=== PATIENT | male | born 1955 | race Caucasian/White ===

== ENCOUNTER 2023-04-19 22:16 | Inpatient (IN) ==
[2023-04-19 23:03] LABS: Basophils # (auto) 0.03 K/uL (0.00-0.20); Basophils % (auto) 0.3 %; Eosinophils # (auto) 0.16 K/uL (0.00-0.50); Eosinophils % (auto) 1.5 %; Hematocrit (blood only) 43.2 % (42.0-52.0); Hemoglobin 14.4 g/dl (14.0-18.0); Immature Granulocytes # (auto) 0.04 K/uL (0.01-0.20); Immature Granulocytes % (auto) 0.4 %; Lymphocytes % (auto) 10.5 %; Mean Corpuscular Hemoglobin 30.4 pg (25.0-34.0); Mean Corpuscular Hgb Conc 33.3 g/dL (32.0-36.0); Mean Corpuscular Volume 91.1 fL (80.0-100.0); Mean Platelet Volume 10.6 fL (9.4-12.4); Monocytes # (auto) 0.98 K/uL (0.11-0.59); Monocytes % (auto) 9.4 %; Neutrophils # (auto) 8.15 K/uL (1.40-6.50); Neutrophils % (auto) 77.9 %; Platelet Count 159 K/uL (130-400); RDW Coefficient of Variation 13.3 % (11.5-14.5); RDW Standard Deviation 44.6 fL (36.4-46.3); Red Blood Count 4.74 M/uL (4.70-6.10); White Blood Count 10.46 K/ul (4.8-10.8)
[2023-04-19 23:11] LABS: Albumin Level 4.4 gm/dl (3.4-5.0); Bilirubin,Total 1.4 mg/dl (0.2-1.0); Calcium 9.2 mg/dl (8.6-10.3); Magnesium 1.9 mg/dl (1.7-2.4); Potassium 3.8 mmol/L (3.5-5.1)
[2023-04-19 23:17] LABS: Albumin Globulin Ratio 1.5 (0.9-2); Creatinine Clr Calc Pharmacy 67.5 ml/min; Est GFR (African American) 88.6 ml/min; Est GFR (Non-African American) 76.5 ml/min; Total Protein 7.4 gm/dl (6.0-8.3)
[2023-04-19 23:20] LABS: Troponin I High Sensitivity 4.8 pg/ml (0-20)
--- NOTE | 2023-04-19 23:36 | CT Scan Report ---
Exam(s): CT HEAD Without Contrast EXAM: CT Head Without Intravenous Contrast CLINICAL HISTORY: Reason for exam: syncope. TECHNIQUE: Axial computed tomography images of the head/brain without intravenous contrast. CTDI is 35.92 mGy and DLP is 624.41 mGy-cm. Automated exposure control was utilized for the study. A dose lowering technique was utilized adhering to the principles of ALARA. COMPARISON: None. FINDINGS: Brain: Global parenchymal volume loss with chronic microvascular ischemic changes. No hemorrhage. Ventricles: Unremarkable. No ventriculomegaly. Bones/joints: Unremarkable. No acute fracture. Soft tissues: Left temporal scalp hematoma. Sinuses: Unremarkable as visualized. Mastoid air cells: Unremarkable as visualized. No mastoid effusion. Orbits: Bilateral lens replacement. IMPRESSION: 1. No intracranial hemorrhage or other acute intracranial abnormality. 2. Left temporal scalp hematoma. 3. Global parenchymal volume loss with chronic microvascular ischemic changes. Electronically signed by: Radames Daniel MD 04/19/23 23:35 PM
--- NOTE | 2023-04-19 23:40 | CT Scan Report ---
Exam(s): CT C SPINE EXAM: CT Cervical Spine Without Intravenous Contrast CLINICAL HISTORY: Reason for exam: Syncope, Fall. TECHNIQUE: Axial computed tomography images of the cervical spine without intravenous contrast. CTDI is 25.7 mGy and DLP is 498.16 mGy-cm. Automated exposure control was utilized for the study. A dose lowering technique was utilized adhering to the principles of ALARA. COMPARISON: None. FINDINGS: Vertebrae: Grade 1 retrolisthesis of C4 on C5. Degenerative change throughout the cervical spine yields varying degrees of foraminal narrowing. No high-grade spinal canal stenosis. No acute fracture. Discs/spinal canal/neural foramina: See above. Soft tissues: Unremarkable. IMPRESSION: No acute fracture or traumatic malalignment of the cervical spine. Electronically signed by: Radames Daniel MD 04/19/23 23:39 PM
--- NOTE | 2023-04-20 01:06 | Emergency Department Note ---
Impression & Plan Pulmonary emboli, Syncope, Dehydration, CHI (closed head injury), Laceration of scalp ED Provider Note ED Provider Note NAME: ED MEJIA AGE:67 SEX: Male : 1955 ARRIVES VIA: EMS INFORMANT: Patient ED PROVIDER(s): Kylie Bonilla DO CHIEF COMPLAINT: Syncope, head injury HPI: This is a 67-year-old male presents emergency department with at bedside due to concern for a syncopal event with subsequent fall and head injury this evening. Patient states he has had a cold the last 2 days, and was taking Mucinex throughout the day. He states he mostly rested and was laying down, and did not have much to eat or drink today. He states he had been seated on the couch watching some television and stood up to go get a drink in the kitchen. He states when he stood up he began feeling slightly dizzy, and as he was walking to the kitchen this seemed to worsen. He states the next thing he knew there were ambulance personnel in his home in front of him. states she was upstairs and she heard a loud noise and came down and found him face down lying on the kitchen floor with blood coming from his head. She states when she turned him over he was breathing, he did not appeal pale, flushed, or sweaty. No seizure-like activity noted. She states he very quickly began to open his eyes and talk to her again although still seemed confused and was insistent on getting up and sitting in the chair. Patient states he does not remember getting up and sitting in the chair. Patient states he is continue taking his usual blood pressure medications despite being ill. PAST MEDICAL HISTORY:See Below PAST SURGICAL HISTORY:See Below FAMILY HISTORY:See Below SOCIAL HISTORY:See Below HOME MEDICATIONS:See Below ALLERGIES:See Below VITALS:See Below PHYSICAL EXAMINATION: GENERAL: alert, well appearing, well nourished, no distress, non-toxic HEAD: nc, 1.5 cm superficial laceration noted to left congregation area, no active bleeding, dried blood noted in the hair, no other evidence of facial trauma, no vizcaino signs, no raccoon eyes EYE EXAM: normal conjunctiva, PERRL and EOM's grossly intact OROPHARYNX: no exudate, no erythema, lips, buccal mucosa, and tongue normal and mucous membranes are moist NECK: supple, no nuchal rigidity, no adenopathy, non-tender LUNGS: Clear to auscultation. Normal chest wall mechanics, no w/r/r HEART: no murmurs, S1 normal and S2 normal CHEST WALL: ABDOMEN: abdomen soft, non-tender, normo-active bowel sounds, no masses, no rebound or guarding. BACK: Back is symmetrical on inspection and there is no deformity, no midline tenderness, no CVA tenderness. SKIN: no rashes, petechiae, orbruising UPPER EXTREMITIES: upper extremities are grossly normal. FROM, nml pulses b/l. LOWER EXTREMITIES: No pitting edema. FROM, nml pulses b/l. NEURO EXAM: Normal sensorium, cranial nerves II-XII grossly intact, normal speech, no facial droop,nogross weakness of arms, no gross weakness of legs. Gross sensation intact. No ataxia. Vital Signs: reviewed and remarkable Differential Diagnosis: vasovagal event, infection, hypoglycemia, electrolyte abnormalities, toxidrome, substance abuse, dysrhythmia, ACS, as well as others were entertained. MEDICAL DECISION MAKING: This is a 67-year-old male presents emergency department following a syncopal event at home. Patient afebrile vital signs stable on arrival. He had no complaints at bedside. Small superficial laceration noted to right scalp without active bleeding, no other evidence of trauma. Patient did have prodromal symptoms, initially thought to be related to dehydration, continued use of his antihypertensives, recent illness, and use of OTC cough/cold medications. Labs drawn and sent, IV established, EKG performed at bedside and interpreted by me and patient monitored on telemetry. He was started on IV fluids and sent for CT head as well as CT C-spine. Troponin negative however D- dimer markedly elevated. Patient sent for CT of the chest additionally which revealed multiple bilateral PEs as well as evidence of right heart strain. Patient's small superficial scalp laceration closed with skin glue as it was along the margin of the hairline. Case discussed with hospitalist for additional evaluation and management. Heparin bolus and drip ordered. Patient denies any prior history of intracranial hemorrhage or GI bleed. We discussed the need for additional inpatient evaluation and management, patient verbalized understanding of results and plan. Consultation(s): 0340: Discussed with Dr. Garcia, [facility] hospitalist team, for additional evaluation and management ER Treatment Provided: See below Diagnostics Interpreted By Me: -ECG: Sinus bradycardia 58, normal axis, normal intervals, no acute ST/T wave changes -Cardiac Monitoring: An order was placed for continuous cardiac monitoring. The monitor shows a rate of 62 with normal sinus rhythm. -Laboratory studies: As stated above and show below. -Imaging studies: CT head: No obvious ICH per my interpretation Triage Nursing Note Reviewed Prior/Outside Records Reviewed . Critical care: Critical care of 39 min performed to assess and manage high likelihood of life- threatening bilateral pulmonary emboli with RV strain, involving labs and imaging performed with assessment to evaluate syncope diagnosis with frequent reassessment. This time includes bedside time, treatment discussions with patient/family/consultants, documentation time and excludes procedure time. Past Med/Surg History Medical History (Updated 04/20/23 @ 08:07 by Kylie Bonilla DO) Hyperlipidemia Hypertension Surgical History (Updated 04/20/23 @ 06:36 by MARTINEZ Tamayo) H/O aortic valve replacement Social History Smoking Status: Former smoker Tobacco Type: Cigarettes Smoking End Date: 1983; Hx Alcohol Use: Yes Alcohol type: wine and hard liquor Hx Substance Use: No Preferred Language: Bulgarian Communication Ability: Effective Rn Tele Required: No Beliefs That Will Affect Care: None Current Living Situation: Spouse Other Information That Helps Us Care for You: No Feels Safe at Home: Yes Safety Concerns: Feels Safe At This Time Assistive Devices: Glasses Assistive Devices Comment: reading glasses Allergies Allergies Allergy/AdvReac Type Severity Reaction Status Date / Time No Known Allergies Allergy Unverified 12/08/12 08:52 Home Meds Home Medications Medication Instructions Recorded Confirmed aspirin 81 mg tablet,delayed 81 mg PO DAILY 04/20/23 04/20/23 release atorvastatin 10 mg tablet 5 mg PO DAILY 04/20/23 04/20/23 carvedilol 12.5 mg tablet 12.5 mg PO BID 04/20/23 04/20/23 lisinopril 20 1 tab PO DAILY 04/20/23 04/20/23 mg-hydrochlorothiazide 12.5 mg tablet Results & Data (ED) Vital Signs Vital Signs - 24 hr 04/19/23 22:29 04/19/23 22:29 04/19/23 22:30 Temperature Temperature Source Pulse Rate 57 L 57 L 57 L Pulse Rate from SpO2 Sensor 57 L 57 L Pulse Rhythm Pulse Strength Respiratory Rate 15 15 Respiratory Effort / Characteristics Respiratory Depth Respiratory Pattern Blood Pressure Blood Pressure Mean Blood Pressure Position Pulse Oximetry 96 96 Oxygen Delivery Method Room Air Room Air Oxygen Flow Rate Sepsis Recent Fever Within 48 Hours Sepsis New/Unexplained Change in Mental Status Sepsis Action Taken by Nursing 04/19/23 22:31 04/19/23 22:31 04/19/23 22:33 Temperature 36.6 C Temperature Source Oral Pulse Rate 57 L 55 L Pulse Rate from SpO2 Sensor 58 L Pulse Rhythm Regular Pulse Strength Normal Respiratory Rate 18 18 Respiratory Effort / Characteristics Non-Labored Spontaneous Respiratory Depth Normal Respiratory Pattern Regular Blood Pressure 120/81 129/80 Blood Pressure Mean 89 96 Blood Pressure Position Semi-fowlers Pulse Oximetry 98 96 Oxygen Delivery Method Room Air Room Air Oxygen Flow Rate Sepsis Recent Fever Within 48 Hours No Sepsis New/Unexplained Change in Mental Status No Sepsis Action Taken by Nursing No Action Required 04/19/23 22:40 04/19/23 22:48 04/19/23 22:50 Temperature Temperature Source Pulse Rate 57 L 60 Pulse Rate from SpO2 Sensor 56 L 57 L Pulse Rhythm Pulse Strength Respiratory Rate 16 15 Respiratory Effort / Characteristics Respiratory Depth Respiratory Pattern Blood Pressure Blood Pressure Mean Blood Pressure Position Pulse Oximetry 96 95 95 Oxygen Delivery Method Room Air Room Air Room Air Oxygen Flow Rate 0 Sepsis Recent Fever Within 48 Hours Sepsis New/Unexplained Change in Mental Status Sepsis Action Taken by Nursing 04/19/23 22:55 04/19/23 23:07 04/19/23 23:07 Temperature Temperature Source Pulse Rate 59 L 59 L Pulse Rate from SpO2 Sensor Pulse Rhythm Regular Pulse Strength Respiratory Rate 16 13 Respiratory Effort / Characteristics Respiratory Depth Respiratory Pattern Blood Pressure 111/62 Blood Pressure Mean 72 Blood Pressure Position Pulse Oximetry 95 Oxygen Delivery Method Room Air Oxygen Flow Rate Sepsis Recent Fever Within 48 Hours Sepsis New/Unexplained Change in Mental Status Sepsis Action Taken by Nursing 04/19/23 23:10 04/19/23 23:20 04/19/23 23:30 Temperature Temperature Source Pulse Rate 65 57 L 57 L Pulse Rate from SpO2 Sensor 59 L 58 L 57 L Pulse Rhythm Pulse Strength Respiratory Rate 15 19 20 Respiratory Effort / Characteristics Respiratory Depth Respiratory Pattern Blood Pressure Blood Pressure Mean Blood Pressure Position Pulse Oximetry 96 96 96 Oxygen Delivery Method Room Air Room Air Room Air Oxygen Flow Rate Sepsis Recent Fever Within 48 Hours Sepsis New/Unexplained Change in Mental Status Sepsis Action Taken by Nursing 04/19/23 23:30 04/19/23 23:40 04/19/23 23:50 Temperature Temperature Source Pulse Rate 58 L 61 Pulse Rate from SpO2 Sensor 57 L 58 L Pulse Rhythm Pulse Strength Respiratory Rate 17 16 Respiratory Effort / Characteristics Respiratory Depth Respiratory Pattern Blood Pressure 109/63 Blood Pressure Mean 90 Blood Pressure Position Pulse Oximetry 97 97 Oxygen Delivery Method Room Air Room Air Oxygen Flow Rate Sepsis Recent Fever Within 48 Hours Sepsis New/Unexplained Change in Mental Status Sepsis Action Taken by Nursing 04/20/23 02:21 04/20/23 03:00 04/20/23 03:30 Temperature Temperature Source Pulse Rate 62 57 L 57 L Pulse Rate from SpO2 Sensor Pulse Rhythm Pulse Strength Respiratory Rate 18 12 Respiratory Effort / Characteristics Respiratory Depth Respiratory Pattern Blood Pressure 123/76 98/59 L Blood Pressure Mean 91 72 Blood Pressure Position Pulse Oximetry 95 96 Oxygen Delivery Method Oxygen Flow Rate Sepsis Recent Fever Within 48 Hours Sepsis New/Unexplained Change in Mental Status Sepsis Action Taken by Nursing 04/20/23 04:31 04/20/23 05:01 Temperature Temperature Source Pulse Rate 63 54 L Pulse Rate from SpO2 Sensor Pulse Rhythm Pulse Strength Respiratory Rate 16 16 Respiratory Effort / Characteristics Respiratory Depth Respiratory Pattern Blood Pressure 130/65 116/70 Blood Pressure Mean 86 85 Blood Pressure Position Pulse Oximetry 90 95 Oxygen Delivery Method Oxygen Flow Rate Sepsis Recent Fever Within 48 Hours Sepsis New/Unexplained Change in Mental Status Sepsis Action Taken by Nursing Laboratory Data 04/20/23 07:09 04/20/23 07:09 Lab Results 04/19/23 04/19/23 04/20/23 Range/Units 22:24 23:54 01:10 WBC 10.46 (4.8-10.8) K/ul RBC 4.74 (4.70-6.10) M/uL Hgb 14.4 (14.0-18.0) g/dl Hct 43.2 (42.0-52.0) % MCV 91.1 (80.0-100.0) fL MCH 30.4 (25.0-34.0) pg MCHC 33.3 (32.0-36.0) g/dL RDW Std Deviation 44.6 (36.4-46.3) fL RDW Coeff of Greg 13.3 (11.5-14.5) % Plt Count 159 (130-400) K/uL MPV 10.6 (9.4-12.4) fL Immature Gran % (Auto) 0.4 % Neut % (Auto) 77.9 % Lymph % (Auto) 10.5 % Callahan % (Auto) 9.4 % Eos % (Auto) 1.5 % Baso % (Auto) 0.3 % Neut # (Auto) 8.15 H (1.40-6.50) K/uL Lymph # (Auto) 1.10 L (1.20-3.40) K/uL Callahan # (Auto) 0.98 H (0.11-0.59) K/uL Eos # (Auto) 0.16 (0.00-0.50) K/uL Baso # (Auto) 0.03 (0.00-0.20) K/uL Immature Gran # (Auto) 0.04 (0.01-0.20) K/uL PT Cancelled 12.0 INR Cancelled 1.1 APTT Cancelled 23 PTT Ratio Cancelled 0.8 D-Dimer Cancelled 92286 H* Sodium 139 (136-145) mmol/L Potassium 3.8 (3.5-5.1) mmol/L Chloride 102 (98-107) mmol/L Carbon Dioxide 30 (21-32) mmol/L Anion Gap 7 (3-11) BUN 19 (6-23) mg/dl Creatinine 1.00 (0.6-1.4) mg/dl Est Cr Clr Drug Dosing 67.5 ml/min Est GFR ( Amer) 88.6 ml/min Est GFR (Non-Af Amer) 76.5 ml/min BUN/Creatinine Ratio 19.0 (10-20) Glucose 118 H (70-99(Fasting)) mg/dl Estimat Average Glucose mg/dl Hemoglobin A1c (4.5-5.6) % Lactate (0.4-2.0) mmol/L Calcium 9.2 (8.6-10.3) mg/dl Magnesium 1.9 (1.7-2.4) mg/dl Total Bilirubin 1.4 H (0.2-1.0) mg/dl AST 18 (13-39) U/L ALT 10 (7-52) U/L Alkaline Phosphatase 70 (34-104) U/L Total Creatine Kinase 59 (30-223) U/L Troponin I High Sens 4.8 6.0 (0-20) pg/ml B-Natriuretic Peptide (0-100) pg/ml Total Protein 7.4 (6.0-8.3) gm/dl Albumin 4.4 (3.4-5.0) gm/dl Globulin 3.0 (2.5-4.0) gm/dl Albumin/Globulin Ratio 1.5 (0.9-2) TSH 1.884 (0.300-4.500) uIu/ml SARS-CoV-2 (PCR) (Negative) Influenza Type A (PCR) (Neg) Influenza Type B (PCR) (Neg) RSV (RT-PCR) (Neg) Blood Type Antibody Screen 04/20/23 04/20/23 Range/Units 03:52 04:40 WBC (4.8-10.8) K/ul RBC (4.70-6.10) M/uL Hgb 13.9 L (14.0-18.0) g/dl Hct 41.2 L (42.0-52.0) % MCV (80.0-100.0) fL MCH (25.0-34.0) pg MCHC (32.0-36.0) g/dL RDW Std Deviation (36.4-46.3) fL RDW Coeff of Greg (11.5-14.5) % Plt Count (130-400) K/uL MPV (9.4-12.4) fL Immature Gran % (Auto) % Neut % (Auto) % Lymph % (Auto) % Callahan % (Auto) % Eos % (Auto) % Baso % (Auto) % Neut # (Auto) (1.40-6.50) K/uL Lymph # (Auto) (1.20-3.40) K/uL Callahan # (Auto) (0.11-0.59) K/uL Eos # (Auto) (0.00-0.50) K/uL Baso # (Auto) (0.00-0.20) K/uL Immature Gran # (Auto) (0.01-0.20) K/uL PT INR APTT PTT Ratio D-Dimer Sodium (136-145) mmol/L Potassium (3.5-5.1) mmol/L Chloride (98-107) mmol/L Carbon Dioxide (21-32) mmol/L Anion Gap (3-11) BUN (6-23) mg/dl Creatinine (0.6-1.4) mg/dl Est Cr Clr Drug Dosing ml/min Est GFR ( Amer) ml/min Est GFR (Non-Af Amer) ml/min BUN/Creatinine Ratio (10-20) Glucose (70-99(Fasting)) mg/dl Estimat Average Glucose 108 mg/dl Hemoglobin A1c 5.4 (4.5-5.6) % Lactate 1.2 (0.4-2.0) mmol/L Calcium (8.6-10.3) mg/dl Magnesium (1.7-2.4) mg/dl Total Bilirubin (0.2-1.0) mg/dl AST (13-39) U/L ALT (7-52) U/L Alkaline Phosphatase (34-104) U/L Total Creatine Kinase (30-223) U/L Troponin I High Sens (0-20) pg/ml B-Natriuretic Peptide 166 H (0-100) pg/ml Total Protein (6.0-8.3) gm/dl Albumin (3.4-5.0) gm/dl Globulin (2.5-4.0) gm/dl Albumin/Globulin Ratio (0.9-2) TSH (0.300-4.500) uIu/ml SARS-CoV-2 (PCR) NEGATIVE (Negative) Influenza Type A (PCR) Negative (Neg) Influenza Type B (PCR) Negative (Neg) RSV (RT-PCR) Negative (Neg) Blood Type B Negative Antibody Screen NEGATIVE Administered Medications Potassium Chloride/Sodium Chloride (Normal Saline W/20 Meq Kcl) 20 meq in 1,000 mls @ 75 mls/hr IV .[id number] ONE; Protocol Stop: 04/20/23 17:02 Last Admin: 04/20/23 05:17 Dose: 75 mls/hr Documented By: SKYLER Heparin Sodium/Dextrose (Heparin Sodium/Dextrose) 25,000 units in 500 mls @ 17 mls/hr IV .Q24H PAOLA; Protocol Stop: 05/20/23 04:59 Last Titration: 04/20/23 06:55 Dose: 850 units/hr, 17 mls/hr Documented By: JESSE Co-signed By: ZAIN Admin: 04/20/23 05:17 Dose: 850 units/hr, 17 mls/hr Documented By: SKYLER Co-signed By: MED Miscellaneous (Icu Protocol For Hyperglycemia) 1 each N/A ACHS PAOLA Stop: 04/22/23 07:29 Last Admin: 04/20/23 07:36 Dose: Not Given Documented By: JESSE Discontinued Medications Heparin Sodium (Porcine) (Heparin Sod (Porcine) 1000 Unit/Ml) 1 units IV NOW ONE Stop: 04/20/23 03:37 Last Admin: 04/20/23 05:12 Dose: Not Given Documented By: SKYLER Heparin Sodium/Dextrose (Heparin Iv Adult Wt-Based Standard W/ Initial Bolus Protocol) 1 each IV NOW STA; Protocol Stop: 04/20/23 03:22 Last Admin: 04/20/23 05:12 Dose: Not Given Documented By: SKYLER Heparin Sodium/Dextrose (Heparin Iv Adult Wt-Based Low-Dose *No* Initial Bolus Protocol) 1 each IV ONE STA; Protocol Stop: 04/20/23 04:36 Last Admin: 04/20/23 05:57 Dose: Not Given Documented By: ZAIN Sodium Chloride (Nss) 1,000 mls @ 999 mls/hr IV .Q1H1M ONE Stop: 04/20/23 01:33 Last Infusion: 04/20/23 05:57 Dose: Infused Documented By: Admin: 04/20/23 01:17 Dose: 999 mls/hr Documented By: JOSSELYN Heparin Sodium/Dextrose (Heparin Sodium/Dextrose) 25,000 units in 500 mls @ 0.02 mls/hr IV .Q24H [facility]; Protocol Stop: 05/20/23 03:44 Last Admin: 04/20/23 05:12 Dose: Not Given Documented By: SKYLER Ioversol (Optiray 320 125ml) 125 ml IV ONCE ONE Stop: 04/20/23 01:47 Last Admin: 04/20/23 01:46 Dose: 118 ml Documented By: SANTOSH Imaging Data Radiologist's Impression: Cervical Spine CT 04/19/23 22:51 Exam(s): CT C SPINE EXAM: CT Cervical Spine Without Intravenous Contrast CLINICAL HISTORY: Reason for exam: Syncope, Fall. TECHNIQUE: Axial computed tomography images of the cervical spine without intravenous contrast. CTDI is 25.7 mGy and DLP is 498.16 mGy-cm. Automated exposure control was utilized for the study. A dose lowering technique was utilized adhering to the principles of ALARA. COMPARISON: None. FINDINGS: Vertebrae: Grade 1 retrolisthesis of C4 on C5. Degenerative change throughout the cervical spine yields varying degrees of foraminal narrowing. No high-grade spinal canal stenosis. No acute fracture. Discs/spinal canal/neural foramina: See above. Soft tissues: Unremarkable. IMPRESSION: No acute fracture or traumatic malalignment of the cervical spine. Electronically signed by: Radames Daniel MD 04/19/23 23:[address] 04/19/23 22:51 Exam(s): CT HEAD Without Contrast EXAM: CT Head Without Intravenous Contrast CLINICAL HISTORY: Reason for exam: syncope. TECHNIQUE: Axial computed tomography images of the head/brain without intravenous contrast. CTDI is 35.92 mGy and DLP is 624.41 mGy-cm. Automated exposure control was utilized for the study. A dose lowering technique was utilized adhering to the principles of ALARA. COMPARISON: None. FINDINGS: Brain: Global parenchymal volume loss with chronic microvascular ischemic changes. No hemorrhage. Ventricles: Unremarkable. No ventriculomegaly. Bones/joints: Unremarkable. No acute fracture. Soft tissues: Left temporal scalp hematoma. Sinuses: Unremarkable as visualized. Mastoid air cells: Unremarkable as visualized. No mastoid effusion. Orbits: Bilateral lens replacement. IMPRESSION: 1. No intracranial hemorrhage or other acute intracranial abnormality. 2. Left temporal scalp hematoma. 3. Global parenchymal volume loss with chronic microvascular ischemic changes. Electronically signed by: Radames Daniel MD 04/19/23 23:35 PM Chest CTA 04/20/23 01:18 CR Exam(s): CTA CHEST W/WO Contrast IV Amt: 118 ml optiray 320 EXAM: CT Angiography Chest With Intravenous Contrast CLINICAL HISTORY: syncope. TECHNIQUE: Axial computed tomographic angiography images of the chest with intravenous contrast. CTDI is 21.37 mGy and DLP is 507.34 mGy-cm. Automated exposure control was utilized for the study. A dose lowering technique was utilized adhering to the principles of ALARA. MIP reconstructed images were created and reviewed. CONTRAST: Patient received 118 ml optiray 320 of IV contrast COMPARISON: No relevant prior studies available. FINDINGS: Pulmonary arteries: Pulmonary embolism noted involving the subsegmental right apical and anterior apical segments, right middle lobe and proximal right anterior lateral and posterior basal segments. There is pulmonary emboli noted involving the left lingular segments and proximal left lower lobe. Aorta: No acute findings. No thoracic aortic aneurysm. Lungs: No focal airspace consolidation. Pleural space: Unremarkable. No significant effusion. No pneumothorax. Heart: Asymmetric enlargement of the right ventricle with the RV/LV ratio at 1.16. No pericardial effusion. Evidence of aortic valve replacement. Bones/joints: No acute fracture. No dislocation. Soft tissues: Unremarkable. Lymph nodes: Unremarkable. No enlarged lymph nodes. IMPRESSION: 1. Bilateral pulmonary emboli noted involving all lobes of both lungs, as detailed above. Evidence of right heart strain with the RV/LV ratio measuring 1.16. 2. No focal airspace consolidation. No pleural effusion or pneumothorax. Communications: Call Doctor Pulmonary Embolism Electronically signed by: Ashihs Chau MD 04/20/23 02:59 AM Discharge Plan Visit Data Chief Complaint: Syncope Stated Complaint: SYNCOPE, HIT HEAD ON COUNTER ED Provider: Kylie Bonilla Discharge Problem: Pulmonary emboli, Syncope, Dehydration, CHI (closed head injury), Laceration of scalp Patient Disposition: Admitted As Inpatient Discharge Instructions Interventions: ED Discharge Assessment Last Done: 04/20/23 05:25
[2023-04-20 01:16] LABS: INR 1.1 (0.9-1.1); Partial Thromboplastin Ratio 0.8; Partial Thromboplastin Time 23 Seconds (21-31)
[2023-04-20] MEDS: SODIUM CHLORIDE 0.9% 1,000 ML IV ONE (01:17)
[2023-04-20 01:18] LABS: D Dimer 11360 ug/L FEU (0-500)
[2023-04-20] MEDS: OPTIRAY 320 125ml IV ONE (01:46)
--- NOTE | 2023-04-20 03:00 | CT Scan Report ---
Exam(s): CTA CHEST W/WO Contrast IV Amt: 118 ml optiray 320 EXAM: CT Angiography Chest With Intravenous Contrast CLINICAL HISTORY: syncope. TECHNIQUE: Axial computed tomographic angiography images of the chest with intravenous contrast. CTDI is 21.37 mGy and DLP is 507.34 mGy-cm. Automated exposure control was utilized for the study. A dose lowering technique was utilized adhering to the principles of ALARA. MIP reconstructed images were created and reviewed. CONTRAST: Patient received 118 ml optiray 320 of IV contrast COMPARISON: No relevant prior studies available. FINDINGS: Pulmonary arteries: Pulmonary embolism noted involving the subsegmental right apical and anterior apical segments, right middle lobe and proximal right anterior lateral and posterior basal segments. There is pulmonary emboli noted involving the left lingular segments and proximal left lower lobe. Aorta: No acute findings. No thoracic aortic aneurysm. Lungs: No focal airspace consolidation. Pleural space: Unremarkable. No significant effusion. No pneumothorax. Heart: Asymmetric enlargement of the right ventricle with the RV/LV ratio at 1.16. No pericardial effusion. Evidence of aortic valve replacement. Bones/joints: No acute fracture. No dislocation. Soft tissues: Unremarkable. Lymph nodes: Unremarkable. No enlarged lymph nodes. IMPRESSION: 1. Bilateral pulmonary emboli noted involving all lobes of both lungs, as detailed above. Evidence of right heart strain with the RV/LV ratio measuring 1.16. 2. No focal airspace consolidation. No pleural effusion or pneumothorax. Communications: Call Doctor Pulmonary Embolism Electronically signed by: Ashish Chau MD 04/20/23 02:59 AM
--- NOTE | 2023-04-20 04:36 | History & Physical Report ---
Date of Service April 20, 2023 Assessment & Plan (1) Pulmonary emboli: Plan: Pulmonary emboli with strain High risk on computed PESI score given transient hypotension First occurrence unprovoked event Rule out hypercoagulability Rule out LE source as clot Syncope likely secondary to hypotension secondary to cardiac strain Cerebral concussion secondary to above Patient sustained scalp hematoma left temporal area hx valvular heart disease (hx severe aortic regurgitation status post bioprosthetic AVR; mild MR/TR, TTE 2022) hx proximal ascending thoracic aorta enlargement Chronic bradycardia hyperlipidemia, on statin Rx Hyperglycemia rule out DM past tobacco abuse ICU Hypercoag workup LE Dopplers rule out DVT Pulmonology consult re: PE with strain IV heparin for now after discussion with inbound sales consultant. (Patient prefers low-dose protocol given higher risk of bleeding with standard protocol/bolus given scalp hematoma from concussion.) Hold home aspirin for now given hematoma in light of anticoagulation for blood clot TTE Re: Syncope, PE with strain Appropriate to hold patient BP meds for now given borderline BP and hypotensive episode. [facility] neurochecks Repeat CT head [address] head Neurology consult Re: Cerebral concussion Check hemoglobin A1c DVT prophylaxis. Heparin Full code Total critical care time was 45 minutes. History of Present Illness Chief Complaint: Syncope Primary Care Provider: Damion Gibson MD History obtained from patient, family, and records. Medical history significant for valvular heart disease (hx severe aortic regurgitation status post bioprosthetic AVR; mild MR/TR, TTE 2022), proximal ascending thoracic aorta enlargement, hypertension, hyperlipidemia, chronic bradycardia, past tobacco abuse. 2 days history of cough and cold symptoms. No chest pain, no SOB. Not sure about sick contacts. Last night, patient got up to get something in the kitchen when he felt lightheaded. Unwitnessed syncopal event resulting in head trauma. Thud heard by patient's . Patient found to have a bleeding wound on the left side of the head. Patient remembers being more awake in the ambulance. No chest pain, no SOB, no tongue biting, no incontinence symptoms. No known personal/family history of blood clots. No recent recent prolonged car/air travel. Has not had screening colonoscopy. No unusual weight loss. Patient brought to the ER for evaluation. Lowest SBP of 90s at some point during ER stay. Medical History as above Surgical History : Bioprosthetic AVR, nevus removal Family History : Lung cancer, heart disease, thyroid disease Personal/Social history : Past tobacco abuse, occasional EtOH intake, [employer] professor Allergies Allergy/AdvReac Type Severity Reaction Status Date / Time No Known Allergies Allergy Unverified 12/08/12 08:52 Home Medications Medication Instructions Recorded Confirmed Type aspirin 81 mg tablet,delayed 81 mg PO DAILY 04/20/23 04/20/23 History release atorvastatin 10 mg tablet 5 mg PO DAILY 04/20/23 04/20/23 History carvedilol 12.5 mg tablet 12.5 mg PO BID 04/20/23 04/20/23 History lisinopril 20 1 tab PO DAILY 04/20/23 04/20/23 History mg-hydrochlorothiazide 12.5 mg tablet Past Med/Surg History Social History Smoking Status: Former smoker Tobacco Type: Cigarettes Feels Safe at Home: Yes Review of Systems Review of Systems: As per HPI, all other systems reviewed and negative Physical Exam Physical Exam: GENERAL: Comfortable, pleasant, no respiratory distress SKIN: Normal color, warm HEENT: [place] palpebral conjunctivae, no ptosis, moist buccal mucosa, tender swelling left temporal area NECK : Supple, no tenderness CHEST : CTA, no tenderness HEART : Bradycardic, systolic murmur ABDOMEN: no distention, nontender EXTREMITIES : No LE swelling/tenderness, no other conspicuous deformities noted NEUROLOGIC : Coherent, no facial asymmetry, no other gross focality Results & Data Results & Data Vital Signs (Past 12 Hours) Vital Signs Temp Pulse Resp BP Pulse Ox O2 Del Method O2 Flow Rate 04/20/23 03:30 57 L 12 98/59 L 96 04/20/23 03:00 57 L 18 123/76 95 04/20/23 02:21 62 04/19/23 23:50 61 16 97 Room Air 04/19/23 23:40 58 L 17 97 Room Air 04/19/23 23:30 109/63 04/19/23 23:30 57 L 20 96 Room Air 04/19/23 23:20 57 L 19 96 Room Air 04/19/23 23:10 65 15 96 Room Air 04/19/23 23:07 59 L 13 04/19/23 23:07 111/62 04/19/23 22:55 59 L 16 95 Room Air 04/19/23 22:50 60 15 95 Room Air 04/19/23 22:48 95 Room Air 0 04/19/23 22:40 57 L 16 96 Room Air 04/19/23 22:33 36.6 C 55 L 18 129/80 96 Room Air 04/19/23 22:31 120/81 04/19/23 22:31 57 L 18 98 Room Air 04/19/23 22:30 57 L 15 96 Room Air 04/19/23 22:29 57 L 15 96 Room Air 04/19/23 22:29 57 L Laboratory Results Laboratory Results WBC 10.46 K/ul (4.8-10.8) 04/19/23 22:24 RBC 4.74 M/uL (4.70-6.10) 04/19/23 22:24 Hgb 14.4 g/dl (14.0-18.0) 04/19/23 22:24 Hct 43.2 % (42.0-52.0) 04/19/23 22: MCV 91.1 fL (80.0-100.0) 04/19/23 22:24 MCH 30.4 pg (25.0-34.0) 04/19/23 22:24 MCHC 33.3 g/dL (32.0-36.0) 04/19/23 22:24 RDW Std Deviation 44.6 fL (36.4-46.3) 04/19/23: RDW Coeff of Greg 13.3 % (11.5-14.5) 04/19/23 22: Plt Count 159 K/uL (130-400) 04/19/23 22: MPV 10.6 fL (9.4-12.4) 04/19/23 22:24 Immature Gran % (Auto) 0.4 % 04/19/23 22: Neut % (Auto) 77.9 % 04/19/23 22:24 Lymph % (Auto) 10.5 % 04/19/23 22: [place] % (Auto) 9.4 % 04/19/23 22:24 Eos % (Auto) 1.5 % 04/19/23: Baso % (Auto) 0.3 % 04/19/23 22:24 Neut # (Auto) 8.15 K/uL (1.40-6.50) H 04/19/23 22:24 Lymph # (Auto) 1.10 K/uL (1.20-3.40) L 04/19/23 22:24 [place] # (Auto) 0.98 K/uL (0.11-0.59) H 04/19/23 22:24 Eos # (Auto) 0.16 K/uL (0.00-0.50) 04/19/23 22:24 Baso # (Auto) 0.03 K/uL (0.00-0.20) 04/19/23 22:24 Immature Gran # (Auto) 0.04 K/uL (0.01-0.20) 04/19/23 22:24 PT 12.0 Seconds (9.0-12.0) 04/19/23 23:54 INR 1.1 (0.9-1.1) 04/19/23 23:54 APTT 23 Seconds (21-31) 04/19/23 23:54 PTT Ratio 0.8 04/19/23 23:54 D-Dimer 77202 ug/L FEU (0-500) H* 04/19/23 23:54 Sodium 139 mmol/L (136-145) 04/19/23 22:24 Potassium 3.8 mmol/L (3.5-5.1) 04/19/23 22:24 Chloride 102 mmol/L (98-107) 04/19/23 22:24 Carbon Dioxide 30 mmol/L (21-32) 04/19/23 22:24 Anion Gap 7 (3-11) 04/19/23 22:24 BUN 19 mg/dl (6-23) 04/19/23 22:24 Creatinine 1.00 mg/dl (0.6-1.4) 04/19/23 22:24 Est Cr Clr Drug Dosing 67.5 ml/min 04/19/23 22:24 Est GFR ( Amer) 88.6 ml/min 04/19/23 22:24 Est GFR (Non-Af Amer) 76.5 ml/min 04/19/23 22:24 BUN/Creatinine Ratio 19.0 (10-20) 04/19/23 22:24 Glucose 118 mg/dl (70-99(Fasting)) H 04/19/23 22:24 Calcium 9.2 mg/dl (8.6-10.3) 04/19/23 22:24 Magnesium 1.9 mg/dl (1.7-2.4) 04/19/23 22:24 Total Bilirubin 1.4 mg/dl (0.2-1.0) H 04/19/23 22:24 AST 18 U/L (13-39) 04/19/23 22:24 ALT 10 U/L (7-52) 04/19/23 22:24 Alkaline Phosphatase 70 U/L (34-104) 04/19/23 22:24 Total Creatine Kinase 59 U/L (30-223) 04/19/23 22:24 Troponin I High Sens 6.0 pg/ml (0-20) 04/20/23 01:10 Total Protein 7.4 gm/dl (6.0-8.3) 04/19/23 22:24 Albumin 4.4 gm/dl (3.4-5.0) 04/19/23 22:24 Globulin 3.0 gm/dl (2.5-4.0) 04/19/23 22:24 Albumin/Globulin Ratio 1.5 (0.9-2) 04/19/23 22:[address] 04/19/23 22:51 Exam(s): CT C SPINE EXAM: CT Cervical Spine Without Intravenous Contrast CLINICAL HISTORY: Reason for exam: Syncope, Fall. TECHNIQUE: Axial computed tomography images of the cervical spine without intravenous contrast. CTDI is 25.7 mGy and DLP is 498.16 mGy-cm. Automated exposure control was utilized for the study. A dose lowering technique was utilized adhering to the principles of ALARA. COMPARISON: None. FINDINGS: Vertebrae: Grade 1 retrolisthesis of C4 on C5. Degenerative change throughout the cervical spine yields varying degrees of foraminal narrowing. No high-grade spinal canal stenosis. No acute fracture. Discs/spinal canal/neural foramina: See above. Soft tissues: Unremarkable. IMPRESSION: No acute fracture or traumatic malalignment of the cervical spine. Electronically signed by: Radames Daniel MD 04/19/23 23:[address] 04/19/23 22:51 Exam(s): CT HEAD Without Contrast EXAM: CT Head Without Intravenous Contrast CLINICAL HISTORY: Reason for exam: syncope. TECHNIQUE: Axial computed tomography images of the head/brain without intravenous contrast. CTDI is 35.92 mGy and DLP is 624.41 mGy-cm. Automated exposure control was utilized for the study. A dose lowering technique was utilized adhering to the principles of ALARA. COMPARISON: None. FINDINGS: Brain: Global parenchymal volume loss with chronic microvascular ischemic changes. No hemorrhage. Ventricles: Unremarkable. No ventriculomegaly. Bones/joints: Unremarkable. No acute fracture. Soft tissues: Left temporal scalp hematoma. Sinuses: Unremarkable as visualized. Mastoid air cells: Unremarkable as visualized. No mastoid effusion. Orbits: Bilateral lens replacement. IMPRESSION: 1. No intracranial hemorrhage or other acute intracranial abnormality. 2. Left temporal scalp hematoma. 3. Global parenchymal volume loss with chronic microvascular ischemic changes. Electronically signed by: Radames Daniel MD 04/19/23 23:35 PM Chest CTA 04/20/23 01:18 CR Exam(s): CTA CHEST W/WO Contrast IV Amt: 118 ml optiray 320 EXAM: CT Angiography Chest With Intravenous Contrast CLINICAL HISTORY: syncope. TECHNIQUE: Axial computed tomographic angiography images of the chest with intravenous contrast. CTDI is 21.37 mGy and DLP is 507.34 mGy-cm. Automated exposure control was utilized for the study. A dose lowering technique was utilized adhering to the principles of ALARA. MIP reconstructed images were created and reviewed. CONTRAST: Patient received 118 ml optiray 320 of IV contrast COMPARISON: No relevant prior studies available. FINDINGS: Pulmonary arteries: Pulmonary embolism noted involving the subsegmental right apical and anterior apical segments, right middle lobe and proximal right anterior lateral and posterior basal segments. There is pulmonary emboli noted involving the left lingular segments and proximal left lower lobe. Aorta: No acute findings. No thoracic aortic aneurysm. Lungs: No focal airspace consolidation. Pleural space: Unremarkable. No significant effusion. No pneumothorax. Heart: Asymmetric enlargement of the right ventricle with the RV/LV ratio at 1.16. No pericardial effusion. Evidence of aortic valve replacement. Bones/joints: No acute fracture. No dislocation. Soft tissues: Unremarkable. Lymph nodes: Unremarkable. No enlarged lymph nodes. IMPRESSION: 1. Bilateral pulmonary emboli noted involving all lobes of both lungs, as detailed above. Evidence of right heart strain with the RV/LV ratio measuring 1.16. 2. No focal airspace consolidation. No pleural effusion or pneumothorax. Communications: Call Doctor Pulmonary Embolism Electronically signed by: Ashish Chau MD 04/20/23 02:59 AM Diagnostic Findings EKG as per my interpretation : Rate 55, sinus bradycardia, normal axis, no ischemia
[2023-04-20 04:43] LABS: Influenza A virus by PCR Negative (Neg); Influenza B virus by PCR Negative (Neg); RSV by PCR Negative (Neg); SARS CoV2 RNA(COVID-19) Ceph NEGATIVE (Negative)
[2023-04-20] MEDS ORDERED: oxyCODONE HCL IR 5 MG TAB (IMMEDIATE RELEASE) PO PRN (05:07)
[2023-04-20] MEDS ORDERED: ACETAMINOPHEN 325 MG TAB PO PRN (05:07)
[2023-04-20] MEDS ORDERED: PROMETHAZINE HCL 6.25 MG in SODIUM CHLORIDE 0.9% 50 ML IV PRN (05:07)
[2023-04-20 05:12] LABS: Thyroid Stimulating Hormone 1.884 uIu/ml (0.300-4.500)
[2023-04-20] MEDS: HEPARIN SOD (PORCINE) 1000 UNIT/ML IV ONE (05:12)
[2023-04-20] MEDS: Heparin IV Adult Wt-Based Standard w/ INITIAL Bolus Protocol IV STA (05:12)
[2023-04-20] MEDS: HEPARIN SODIUM/DEXTROSE 25,000 UNITS/500 ML BAG IV SCH ×2 (05:12→05:17)
[2023-04-20] MEDS: NSS + 20MEQ KCL 20 MEQ/1,000 ML BAG IV ONE (05:17)
[2023-04-20 05:22] LABS: Hematocrit (blood only) 41.2 % (42.0-52.0); Hemoglobin 13.9 g/dl (14.0-18.0)
--- OUTSIDE RECORDS SUMMARY | 2023-04-20 05:45 | External Medical Summary ---
Author Name Unknown Address Unknown Organization K01:[facility] [place] [facility] [address] [facility] [id number] Laboratory Report Ordering Provider Test Date Status MARLEY JEAN 11/04/2022 08:53:22 Final Observation Date Value Abnormality Reference (Units ) Status Triglyceride 11/04/2022 08:53:22 94 <=174 ( mg/dL) Final Triglyceride Reference Range s (mg/dL):
<150 Acceptable
150-174 Borderline high
175-499 High
>=500 Very high Cholesterol 11/04/2022 08:53:22 159 <200 (mg /dL) Final Total Cholesterol Reference Ranges (mg/dL):
<200 Desirable
200-239 Borderline high
>=240 High HDL 11/04/2022 08:53:22 64 >39 (mg/dL ) Final HDL Cholesterol Reference Ra nges (mg/dL):
>=60 High (Desirable)
<50 Low (Undesirable) For Females
<40 Low (Undesirable) For Males NON-HDL CHOLESTEROL 11/04/2022 08:53:22 95 <=159 (mg/dL) Final Non-HDL Cholesterol Referenc e Range (mg/dL):
<100 Target level for high risk ASCVD patient
<130 Optimal for general population
130-159 Near optimal for general population
160-189 Borderline High
190-219 High
>=220 Very High LDL, (calculated) 11/04/2022 08:53:22 76 <= 129 (mg/dL) Final LDL Cholesterol Reference Ra nges (mg/dL):
<70 Target level for high risk ASCVD patient
<100 Optimal for general population
100-129 Near optimal for general population
130-159 Borderline high
160-189 High
>=190 Very high Performing Location [facility] [place] [facility] [address] [facility] [id number]
--- OUTSIDE RECORDS SUMMARY | 2023-04-20 05:45 | External Medical Summary | Summary of Care ---
Author Name Unknown Organization [facility] Address [address] [place] [address] Phone [phone] Care Team Providers Care Bilingual Research Interviewer Name Role Phone Paige WARREN MD, Damion Barrett Primary Care Provider [phone] Reason for Visit * Reason Comments eRx-Medication Refill Encounter Details Date Type Department Care Team (Late st Contact Info) Description 01/18/2023 Refill Cardiology, [facility] [address] [place] [address] Lj Seaman, [address] [place] [phone] Dyslipidemia, goal LDL below 100; HTN, goal below 140/90; HTN, goal below 140/80 Allergies No known active allergiesdocumented as of this encounter (statuses as of 01/18/2023) Medications Medication Sig Dispensed Refills Start Date End Date Status amoxicillin (AMOXIL) 500 MG CapsuleIndication s:SBE (subacute bacterial endocarditis) prophylaxis candidate 4 tablets by mouth 30-60 minutes prior to dental procedure 4 Cap 3 01/12/2017 Active Aspirin Low Dose 81 MG Oral Tablet Delayed Release (aspirin enteric coated)Indication s:HTN, goal below 140/80 TAKE 1 TABLET BY MOUTH ONCE DAILY 120 Tablet 0 07/15/2022 Active Atorvastatin Calcium 10 MG Oral Tablet (Lipitor)Indicati ons:Dyslipidemia, goal LDL below 100 TAKE 1/2 TABLET BY MOUTH DAILY 45 Tablet 3 01/18/2023 Active Carvedilol 12.5 MG Oral Tablet (Coreg)Indication s:HTN, goal below 140/90,HTN, goal below 140/80 TAKE 1 TABLET BY MOUTH TWICE DAILY 180 Tablet 3 01/18/2023 Active Lisinopril-hydroC HLOROthiazide 20-12.5 MG Oral TabletIndications :HTN, goal below 140/90,HTN, goal below 140/80 TAKE 1 TABLET BY MOUTH DAILY. 90 Tablet 3 01/18/2023 Active Lisinopril-hydroC HLOROthiazide 20-12.5 MG Oral TabletIndications :HTN, goal below 140/90,HTN, goal below 140/80 Take 1 Tablet by mouth in the morning. 90 Tablet 3 10/13/2022 3 Discontinued Carvedilol 12.5 MG Oral Tablet (Coreg)Indication s:HTN, goal below 140/90,HTN, goal below 140/80 Take 1 Tablet by mouth in the morning and 1 Tablet before bedtime. 180 Tablet 3 10/13/2022 3 Discontinued Atorvastatin Calcium 10 MG Oral Tablet (Lipitor)Indicati ons:Dyslipidemia, goal LDL below 100 Take 0.5 Tablets by mouth in the morning. 45 Tablet 3 10/13/2022 3 Discontinued documented as of this encounter (statuses as of 01/18/2023) Active Problems Problem Noted Date Diagnosed Date HTN, goal below 140/90 08/05/2015 Overview: Per HTN Protocol SBE (subacute bacterial endocarditis) prophylaxi s candidate 11/09/2013 S/P AVR (aortic valve replacement) 03/03/2013 Dyslipidemia, goal LDL below 100 01/24/2013 CONGENITAL NEVUS TRUNK 01/09/2004 documented as of this encounter (statuses as of 01/18/2023) Resolved Problems Problem Noted Date Diagnosed Date Resolved Date Encounter for examination fo r normal comparison and control in clinical research program 04/06/2018 09/12/2020 Overview: PERT (Performance of Epi proColon in Repeated Testing in the Intended Use Population) Epi proColon is an FDA approved blood test designed to detect Colon Cancer. The object of this study is to evaluate longitudinal performance of Epi proColon with respect to test positivity, longitudinal adherence to Epi proColon screening, adherence to follow-up colonoscopy and diagnostic yield, as well as assay failure rates. Contacts: PI: Dr. Supriya Horne [facility]- Edna Richardson ([phone]) [facility]- Griselda Brown ([phone]) Mimi Jimenez [facility]- Macy Russell ([phone]) Diagnosis changed due to Research Module. Go to Snapshot for study details. Aortic regurgitation 12/13/2012 014 HTN, goal below 140/80 12/13/201208/07 Overview: Per HTN Protocol Screening cholesterol level 12/13/2012 01/24/2013 documented as of this encounter (statuses as of 01/18/2023) Immunizations Name Administration Dates Next Due COVID-19 mRNA, LNP-s, No Pre serve, 2-Dose Series (Pfizer) 05/29/2020,05/08/2020 Pneumococcal Conjugate Vaccine, 20-valent (Prevn ar20) 04/14/2022 Season Influenza, Quad, PF, Adjuvanted, 65+ Yrs, IM (FLUAD) 12/14/2019 Seasonal Influenza, Quadrivalent Hd (Fluzone Hd) 12/10/2020 Seasonal Influenza, Split, IIV3, With Preserve, Inj 01/23/2015,12/29/2012 TDAP (age 10 and older)(Boostrix) 11/17/2012 Varicella Zoster Vaccine (Adult) 07/24/2015 Zoster Vaccine Recombinant (Shingrix) 11/16/2018 ,07/15/2018 documented as of this encounter Social History Tobacco Use Types Packs/Day Years Used Date Smoking Tobacco: Former Cigarettes 1.5 20 Q uit: 12/01/1988 Smokeless Tobacco: Never Alcohol Use Standard Drinks/Week Comments Yes 2.5 (1 standard drink = 0.6 oz p ure alcohol) 3/week, usually less Sex and Gender Information Value Date Recorded Sex Assigned at Not on file Gender Identity Not on file Sexual Orientation Not on file Job Start Date Occupation Industry Not on file Not on file Not on file documented as of this encounter Functional Status Functional Status Response Date of Assess ment Are you deaf or do you have serious difficulty h earing? No 02/10/2013 Are you blind or do you have serious difficulty seeing, even when wearing glasses? No 02/10/2013 Do you have serious difficul ty walking or climbing stairs? (5 years old or older) No 02/10/2013 Do you have difficulty dress ing or bathing? (5 years old or older) No 02/10/2013 Because of a physical, menta l, or emotional condition, do you have difficulty doing errands alone such as visiting a doctor s office or shopping? (15 years old or older) No 02/11/20 13 Cognitive Status Response Date of Assessm ent Because of a physical, menta l, or emotional condition, do you have serious difficulty concentrating, remembering, or making decisions? (5 years old or older) No 02/10/2013 documented as of this encounter Miscellaneous Notes * Telephone Encounter - Miranda Roach PA-C - 01/18/2023 3:33 PM EST Signed Prescriptions: Disp Refills Atorvastatin Calcium 10 MG Oral Tablet (Li*45 Tab*3 Sig: TAKE 1/2 TABLET BY MOUTH DAILY Authorizing Provider: MIRANDA ROACH Carvedilol 12.5 MG Oral Tablet (Coreg) 180 Ta*3 Sig: TAKE 1 TABLET BY MOUTH TWICE DAILY Authorizing Provider: MIRANDA ROACH Lisinopril-hydroCHLOROthiazide 20-12.5 MG *90 Tab*3 Sig: TAKE 1 TABLET BY MOUTH DAILY. Authorizing Provider: MIRANDA ROACH * Telephone Encounter - Irlanda Ruano COT - 01/18/2023 11:06 AM ESTPending Prescriptions: Disp Refills Atorvastatin Calcium 10 MG Oral Tablet (Li*45 Tab*3 Sig: TAKE 1/2 TABLET BY MOUTH DAILY Carvedilol 12.5 MG Oral Tablet (Coreg) 180 Ta*3 Sig: TAKE 1 TABLET BY MOUTH TWICE DAILY Lisinopril-hydroCHLOROthiazide 20-12.5 MG *90 Tab*3 Sig: TAKE 1 TABLET BY MOUTH DAILY. --- * Telephone Encounter - Irlanda Ruano COT - 01/18/2023 11:06 AM EST Did you pend patient's preferred pharmacy and medication before forwarding?yes Pharmacy: [facility]- [place] Pending Prescriptions: Disp Refills Atorvastatin Calcium 10 MG Oral Tablet (L*45 Tab*3 Sig: TAKE 1/2 TABLET BY MOUTH DAILY Carvedilol 12.5 MG Oral Tablet (Coreg) [P*180 Ta*3 Sig: TAKE 1 TABLET BY MOUTH TWICE DAILY Lisinopril-hydroCHLOROthiazide 20-12.5 MG*90 Tab*3 Sig: TAKE 1 TABLET BY MOUTH DAILY. Last Visit: 11/03/2022 (in office), Visit date not found (telemedicine) Next Visit: Visit date not found If no future appointments scheduled, and last appointment is greater than a year ago, please schedule patient for a follow-up appointment Last date the medication was ordered: 10-13-2022 Is this request for a controlled substance?No Urine Drug Screen:No results found for this or any previous visit. Patient Phone Numbers Labs: Lab Results Component Value Date/Time CREAT 0.9 11/04/2022 08:53 AM CREAT 0.9 12/08/2017 10:22 AM POTASSIUM 4.4 11/04/2022 08:53 AM POTASSIUM 4.1 12/08/2017 10:22 AM TSH 1.77 11/17/2012 02:36 PM LDLCALC 76 11/04/2022 08:53 AM LDLCALC 82 12/08/2017 10:22 AM LDLDIRECT NOT APPLICABLE 12/08/2017 10:22 AM ALT 11 11/04/2022 08:53 AM ALT 9 (L) 12/08/2017 10:22 AM HGBA1C 5.2 01/12/2013 05:07 PM documented in this encounter Plan of Treatment Upcoming Encounters Date Type Department Care Team (Late st Contact Info) Description 07/05/2023 1:30 PM EDT Cardiac Studies Cardiac Studies, [facility] [address] [place] [id number] Health Maintenance Due Date Last Done Comments Albumin/Creatinine Ratio 05/16/1971 Hepatitis C Screening 05/16/1971 Cologuard 1998 Colonoscopy 1998 Colorectal Cancer Screening 1998 Fecal Occult Blood Test 1998 Sigmoidoscopy 1998 Depression Screening 08/04/2017 08/04/2016 AAA Screening 2018 COVID-19 Vaccine ( season) 2022 12/26/2020, 05/29/2020, 05/08/2020 Influenza Vaccine (FLU shot) (#1) 2022 01/08/2022, 12/10/2020, 12/10/2020, Additional history exists DTaP,Tdap,and Td Vaccines (2 - Td or Tdap) 11/17/2022 11/17/2012 GFR 11/05/2023 11/04/2022, 06/22, 12/08/2017, Additional history exists Lipid Panel 11/05/2027 11/04/2022, 06/22, 12/08/2017, Additional history exists Zoster Vaccines Completed 11/16/2018, 06/23, 07/24/2015 Pneumococcal Vaccine: 65+ Years Completed 04/14/2022 GARDASIL-HPV IMMUNIZATION SERIES Aged Out No longer eligible based on patient's age to complete this topic Hepatitis B Aged Out No longer eligi ble based on patient's age to complete this topic MENINGOCOCCAL (MENACTRA/MENVEO) Aged Out No longer eligible based on patient's age to complete this topic documented as of this encounter Medical Devices Implanted Type Area Director Of Revenue Cycle Management Device Identifier Shelf Expiration Date Model / Serial / Lot Valve Aor Rogers Ii 27mm T505 - [id number] Implanted:Qty : 1 on 02/10/2013 at OR [facility] [place] Tissue - Non Human N/A: Aorta [employer] : CARDIAC SURGERY 10/11/2015 27-T505 / [id number] / [employer] 6 M654g - [id number] Implanted:Qty : 6 on 02/10/2013 at OR [facility] [place] N/A: Chest DO NOT USE 09/21/2017 [id number] / / [id number] documented as of this encounter Visit Diagnoses Diagnosis Dyslipidemia, goal LDL below 100 Other and unspecified hyperlipidemia HTN, goal below 140/90 Unspecified essential hypertension HTN, goal below 140/80 Unspecified essential hypertension documented in this encounter Advance Directives Latest Code Status on File Code Status Date Activated Date Inactivated Comments Full Code 02/10/2013 10:59 AM 02/14/2013 2:29 PM Th is order reflects the patients wishes and were consensually agreed upon. Care Teams Bilingual Research Interviewer Relationship Specialty Start Date End Date Damion Gibson III, MD [address] [place] [address] PCP - General Family Medicine 11/29/12 documented as of this encounter
--- OUTSIDE RECORDS SUMMARY | 2023-04-20 05:45 | External Medical Summary | Summary of Care ---
Author Name Unknown Organization [facility] Address [address] [place] [address] Phone [phone] Care Team Providers Care Hogshead Opener Name Role Phone Paige WARREN MD, Damion Barrett Primary Care Provider [phone] Reason for Referral * Precert (Within 10 days (routine)) - Pending Review Specialty Diagnoses / Procedures Referred By Contac t Referred To Contact Cardiac Studies Diagnoses HTN, goal below 140/90 S/P AVR (aortic valve replacement) Dyslipidemia, goal LDL below 100 Procedures ECHO, COMPLETE (2D), TRANS-THORACIC Bettina Mcgregor PA-C [address] [place] [address] Referral ID Status Reason Start Date Expiration Date Visits Requested Visits Authorized [id number] Pending Review Precert 07/05/2023 999 999 Reason for Visit * Reason Comments Follow Up Yearly follow up. De nies chest pain, palpitations, SOB, dizziness and edema. Encounter Details Date Type Department Care Team Description 11/03/2022 Office Visit Cardiology, [facility] [address] [place] [phone] Bettina Mcgregor PA-C [address] [place] [phone] S/P AVR (aortic valve replacement)*; HTN, goal below 140/90; Dyslipidemia, goal LDL below 100 Allergies No known active allergiesdocumented as of this encounter (statuses as of 11/03/2022) Medications Medication Sig Dispensed Refills Start Date End Date Status amoxicillin (AMOXIL) 500 MG CapsuleIndications:S BE (subacute bacterial endocarditis) prophylaxis candidate 4 tablets by mouth 30-60 minutes prior to dental procedure 4 Cap 3 01/12/2017 Active Aspirin Low Dose 81 MG Oral Tablet Delayed Release (aspirin enteric coated)Indications:H TN, goal below 140/80 TAKE 1 TABLET BY MOUTH ONCE DAILY 120 Tablet 0 07/15/2022 Active Lisinopril-hydroCHLO ROthiazide 20-12.5 MG Oral TabletIndications:HT N, goal below 140/90,HTN, goal below 140/80 Take 1 Tablet by mouth in the morning. 90 Tablet 3 10/13/2022 Active Carvedilol 12.5 MG Oral Tablet (Coreg)Indications:H TN, goal below 140/90,HTN, goal below 140/80 Take 1 Tablet by mouth in the morning and 1 Tablet before bedtime. 180 Tablet 3 10/13/2022 Active Atorvastatin Calcium 10 MG Oral Tablet (Lipitor)Indications :Dyslipidemia, goal LDL below 100 Take 0.5 Tablets by mouth in the morning. 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 Supriya Horne CRC- Edna Richardson ([phone]) [facility] CRC- Griselda Leblancliudmila ([phone]) Mimi Jimenez CRC- Macy Russell ([phone]) Diagnosis changed due to Research Module. Go to Snapshot for study details. Aortic regurgitation 12/13/2012 03/03/2013 HTN, goal below 140/80 12/13/2012 6 Overview: Per HTN Protocol Screening cholesterol level 12/13/2012 12/0 04/2012 documented as of this encounter (statuses as of 11/03/2022) Immunizations Name Administration Dates Next Due COVID-19 mRNA, LNP-s, No Pre serve, 2-Dose Series (Archivas) 05/29/2020,05/08/2020 Pneumococcal Conjugate Vaccine, 20-valent (Prevn ar20) [...] p ure alcohol) 3/week, usually less Sex Assigned at Date Recorded Not on file Job Start Date Occupation Industry Not on file Not on file Not on file documented as of this encounter Last Filed Vital Signs Vital Sign Reading Time Taken Comments Blood Pressure 122/70 11/03/2022 7:51 AM EDT Pulse 56 11/03/2022 7:51 AM EDT Temperature - - Respiratory Rate 16 11/03/2022 7:51 AM EDT Oxygen Saturation - - Inhaled Oxygen Concentration - - Weight 72.8 kg (160 lb 8 oz) 11/03/2022 7:51 AM EDT Height - - Body Mass Index 23.7 01/12/2017 1:27 PM EST documented in this encounter Functional Status Functional Status Response [...] or making decisions? (5 years old or older No 02/10/2013 documented as of this encounter Progress Notes * Bettina Mcgregor PA-C - 11/03/2022 8:54 AM EDT 11/03/2022 Cardiology Follow Up CHIEF COMPLAINT: Follow up, history of surgical aortic valve replacement for severe aortic valve regurgitation with bioprosthesis, hypertension, dyslipidemia SUBJECTIVE: Eliud Ayala is a 67 year old male who presents today for routine cardiology f/u. Last clinic evaluation slightly greater than [address] Seaman. Cardiology problem list: History of severe aortic valve regurgitation for which he underwent bioprosthetic aortic valve replacement receiving a 27 millimeter Rogers to bioprosthesis on 02/10/2013 at [facility]. Increased gradientsof AVR noted on recent echo. Stable symptoms. Preoperative cardiac catheterization December, revealed right-dominant coronary system free ofobstructive CAD Hypertension Dyslipidemia He presents today feeling well. Denies acute cardiac complaints. Remains active exercising at the [facility] on a regular basis. No exertional symptoms or changes to his functional capacity. Taking meds asprescribed. BP controlled. No chest pain, shortness of breath, palpitations, dizziness, syncope or near syncope. No orthopnea,PND, or increased lower extremity edema. No fever, chills, cough, hematochezia, melena, or hemoptysis. Review of Systems: See HPI for pertinent positives. All others negative, other than those noted in HPI. 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 Dyslipidemia, goal LDL below 100 E78.5 S/P AVR (aortic valve replacement) Z95.2 SBE (subacute bacterial endocarditis) prophylaxis candidate Z29.8 HTN, goal below 140/90 I10 Social History Tobacco Use Smoking status: Former Packs/day: 1.50 Years: 20.00 Pack years: 30.00 Types: Cigarettes Quit date: 12/01/1988 Years since quittin.9 Smokeless tobacco: Never Substance Use Topics Alcohol use: Yes Alcohol/week: 2.5 standard drinks Types: 3 5 oz of wine per week Comment: 3/week, usually less Drug use: No Review of patient's allergies indicates: No Known Allergies Current Outpatient Medications Medication Sig Dispense Refill Aspirin Low Dose 81 MG Oral Tablet Delayed Release (aspirin enteric coated) TAKE 1 TABLET BY MOUTH ONCE DAILY 120 Tablet 0 Lisinopril-hydroCHLOROthiazide 20-12.5 MG Oral Tablet Take 1 Tablet by mouth in the morning. 90 Tablet 3 Carvedilol 12.5 MG Oral Tablet (Coreg) Take 1 Tablet by mouth in the morning and 1 Tablet before bedtime. 180 Tablet 3 Atorvastatin Calcium 10 MG Oral Tablet (Lipitor) Take 0.5 Tablets by mouth in the morning. 45 Tablet 3 amoxicillin (AMOXIL) 500 MG Capsule 4 tablets by mouth 30-60 minutes prior to dental procedure 4 Cap 3 No current facility-administered medications for this visit. OBJECTIVE/PHYSICAL EXAMINATION: BP 122/70 | Pulse 56 | Resp 16 | Wt 72.8 kg (160 lb 8 oz) | BMI 23.70 kg/m | BSA 1.88 m BP Readings from Last 4 Encounters: 11/03/22 122/70 07/09/21 140/76 07/02/21 148/78 07/08/20 132/88 General: no acute distress and stated age Eyes: conjunctiva are pink and non-injected, sclera clear Neck: normal jugular venous pulse, no hepatojugular reflux Chest: normal shape and normal respiratory effort Lungs: clear to auscultation , no rales rhonchi or wheezing Cardiac Exam: - regular heart sounds, 2/6 SM Musculoskeletal: no gait disturbance, no weakness Extremities: no edema and no cyanosis Neuro: grossly normal exam Psych: appropriate affect and insight. Data: EKG performed today and reviewed personally: Sinus bradycardia 52 beats per minute Normal EKG Compared with prior EKG in June 2021, no significant changes noted. Echo report reviewed dated June 2022: Interpretation Summary The examination is adequate to evaluate the referral indication. There was sinus bradycardia during the examination. The LV wall thickness is normal. The left ventricular wall motion is normal. The qualitative LV ejection fraction is 55-59% (normal). The left ventricular diastolic function is moderately abnormal (grade II). There is an aortic valve bioprosthetic present. The aortic valve prosthesis systolic gradients are borderline elevated and are indeterminate for obstruction. Trace aortic insufficiency is present. There is a small mobile echodensity visualized on the ventricular aspect of the anterior mitral valve leaflet in the apical 5 chamber view that is consistent with a ruptured chord or retained suture remnant. Mild mitral regurgitation is present. Mild tricuspid regurgitation is present. The proximal ascending thoracic aorta is mildly enlarged, 4.1 cm. The proximal ascending aorta is not visualized adequately enough to allow measurement. Compared to the prior study dated 07/02/2021 there has been no significant interval change. EKG performed 07/09/2021 reveals sinus bradycardia 49 beats per minute, normal EKG. Summary of transthoracic echocardiogram performed 07/02/2021, reviewed independently in advance of today's visit: There was sinus bradycardia during the examination. The LV wall thickness is mildly increased (concentric). The left ventricular wall motion is normal. The left ventricular systolic function is normal. The left atrium is moderately enlarged. The left ventricular diastolic function is moderately abnormal (grade II). There is a small mobile echodensity visualized on the ventricular aspect of the anterior mitral valve leaflet in the apical 5 chamber view that is consistent with a ruptured chord or retained suture remnant. Mild mitral regurgitation is present. Mild tricuspid regurgitation is present. The aortic root is mildly enlarged. The proximal ascending aorta is not visualized well enough to allow measurement. There is an aortic valve bioprosthetic present. The aortic valve prosthesis systolic gradients are borderline elevated and are indeterminate for obstruction, peak CW velocity 3.5 meters/second. Prosthetic valve leaflets appear freely mobile with small valvular size Trace aortic insufficiency is present. Compared to the previous study there is no significant interval change. Doppler velocities are relatively stable. Echodensity noted in the LV outflow tract unchanged. No recent labs ASSESSMENT: 67 year old male ICD-10-CM 1. S/P AVR (aortic valve replacement) Z95.2 2. HTN, goal below 140/90 I10 3. Dyslipidemia, goal LDL below 100 E78.5 PLAN: Stable cardiac symptoms. BP controlled. No exertional complaints. Stable valvular findings in June 2022. We reviewed echo results with stable findings. He is due for updated labs including lipids and CMP. Orders placed. Repeat echo at 1 year interval from last, June 2023 and patient requesting f/u after echo to review results. Recommend regular aerobic exercise. [place] goal would be minimum of 30 minutes done daily. Exercise can be done in divided time periods if needed. Told to avoid extremes in temperature. The patient is to continue all current medications as listed above. No changes were made at today[facility]. I spent a total of 30 minutes on the date of service in preparation, delivery, and documentation ofthe care provided to Eliud Ayala excluding any time spent in the performance of separatelybilled services. The patient agrees to the above plan and will call with additional questions or concerns. ER with all emergencies advised. Follow-up: Return in about 9 months (around 08/04/2023). | Check-out note: Fasting blood work here in the near future Schedule echo in June 2023 F/U about 1 week after echo with Dr. Jurgen Mcgregor PA-C Department of Cardiology This chart was completed in part utilizing [employer] Speech Voice Recognition Software. Grammatical errors, random word insertions, prounoun errors, and incomplete sentences are an occasional consequence of this system due to software limitations, ambient noise, and hardware issues. Any formal questions or concerns about the content, text, or information contained within the body of this dictation should be directly addressed to the provider for clarification. . documented in this encounter Plan of Treatment Upcoming Encounters Date Type Specialty Care Team Description 07/05/2023 Cardiac Studies Cardiac Studies Scheduled Orders Name Type Priority Associated Diagnoses Orde r Schedule COMPREHENSIVE METABOLIC PANEL Lab Routine HTN, goal below 140/90 S/P AVR (aortic valve replacement) Dyslipidemia, goal LDL below 100 Expected: 11/04/2022, Expires: 11/04/2023 LIPID PANEL WITH DIRECT LDL IF TG IS HIGH Lab Routine HTN, goal below 140/90 S/P AVR (aortic valve replacement) Dyslipidemia, goal LDL below 100 Expected: 11/03/2022, Expires: 11/04/2023 ECHO, COMPLETE (2D), TRANS-THORACIC Echocardiology Routine HTN, goal below 140/90 S/P AVR (aortic valve replacement) Dyslipidemia, goal LDL below 100 Expected: 07/05/2023 (Approximate), Expires: 11/04/2023 Health Maintenance Due Date Last Done Comments Albumin/Creatinine Ratio 05/16/1971 Hepatitis C Screening 05/16/1971 Cologuard 1998 Colonoscopy 1998 Colorectal Cancer Screening 1998 Fecal Occult Blood Test 1998 Sigmoidoscopy 1998 Depression Screening 08/04/2017 08/04/2016 AAA Screening 2018 COVID-19 Vaccine (4 - Pfizer series) 02/20/2021 12/26/2020, 05/29/2020, 05/08/2020 GFR 07/10/2022 07/10/2021, 11/22, 07/23/2015, Additional history exists Influenza Vaccine (FLU shot) (#1) 2022 01/08/2022, 12/10/2020, 12/10/2020, Additional history exists DTaP,Tdap,and Td Vaccines (2 - Td or Tdap) 11/17/2022 11/17/2012 Lipid Panel 07/10/2026 07/10/2021, 11/22, 07/23/2015, Additional history exists Zoster Vaccines Completed 11/16/2018, [...] this encounter Medical Devices Implanted Type Area Car Wiper Device Identifier Shelf Expiration Date Model / Serial / Lot Valve Aor Rogers Ii 27mm T505 - [id number] Implanted:Qty : 1 on 02/10/2013 at OR [facility] Tissue - Non Human N/A: Aorta [employer] : CARDIAC SURGERY 10/11/2015 27-T505 / [id number] / Sut Steel 6 M654g - [id number] Implanted:Qty : 6 on 02/10/2013 at OR [facility] N/A: Chest DO NOT USE 09/21/2017 [id number] / / [id number] documented as of this encounter Results * EKG (11/03/2022 7:56 AM EDT) 11/03/2022 7:56 AM EDT Procedure Note Ladarius Rodriguez MD - 11/03/2022 7:56 AM EDT REASON FOR STUDY: HTN CONCLUSIONS: Sinus bradycardia Otherwise normal ECG When compared with ECG of 09-JUL-2021 13:24, No significant change was found Ventricular Rate: 52 Atrial Rate: 52 TN Interval: 182 QRS Duration: 98 QT/QTc: 428/398 ms P-R-T [place]: 71 : 58 : 62 degrees Bettina Mcgregor PA-C EKG Performing Organization Address City/State/[facility] Phone Number [facility] documented in this encounter Visit Diagnoses Diagnosis S/P AVR (aortic valve replacement)- Primary Heart valve replaced by other means HTN, goal below 140/90 Unspecified essential hypertension Dyslipidemia, goal LDL below 100 Other and unspecified hyperlipidemia HTN, goal below 140/90 Unspecified essential hypertension documented in this encounter Advance Directives Latest Code Status on File Code Status Date Activated Date Inactivated Comments Full Code 02/10/2013 10:59 AM 02/14/2013 2:29 PM Th is order reflects the patients wishes and were consensually agreed upon. Care Teams Hogshead Opener Relationship Specialty Start Date End Date Damion Gibson III, MD [address] [facility] [place] [address] PCP - General Family Medicine 11/29/12 documented as of this encounter"
--- OUTSIDE RECORDS SUMMARY | 2023-04-20 05:45 | External Medical Summary | Summary of Care ---
Author Name Unknown Organization [facility] Address [address] [place] [address] Phone [phone] Care Team Providers Care Counselor/Art Therapist Name Role Phone Paige WARREN MD, Damion Barrett Primary Care Provider [phone] Reason for Visit * Reason Comments Outpatient Testing Encounter Details Date Type Department Care Team Description 11/04/2022 Laboratory Laboratory, [facility] [place] [address] [place] [id number] [facility] [address] [place] [address] HTN, goal below 140/90; S/P AVR (aortic valve replacement); Dyslipidemia, goal LDL below 100 Allergies No known active allergiesdocumented as of this encounter (statuses as of 11/04/2022) Medications Medication Sig Dispensed Refills Start Date [...] as of this encounter (statuses as of 11/04/2022) Active Problems Problem Noted Date HTN, goal below 140/90 08/05/2015 Overview: Per HTN Protocol SBE (subacute bacterial endocarditis) pr ophylaxis candidate 11/09/2013 S/P AVR (aortic valve replacement) 03/03 Dyslipidemia, goal LDL below 100 013 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 Supriya Horne CRC- Edna Richardson ([phone]) [facility] CRC- Griselda Brown ([phone]) [facility] CRC- Macy Russell ([phone]) Diagnosis changed due to Research Module. Go to Snapshot for study details. Aortic regurgitation 12/13/2012 03/03/2013 HTN, goal below 140/80 12/13/2012 6 Overview: Per HTN Protocol Screening cholesterol level 12/13/2012 12/0 04/2012 documented as of this encounter (statuses as of 11/04/2022) Immunizations Name Administration Dates Next Due COVID-19 [...] No 02/10/2013 documented as of this encounter Plan of Treatment Upcoming Encounters Date Type Specialty Care Team Description 07/05/2023 Cardiac Studies Cardiac Studies Pending Results Name Type Priority Associated Diagnoses Date /Time COMPREHENSIVE METABOLIC PANEL Lab Routine HTN, goal below 140/90 S/P AVR (aortic valve replacement) Dyslipidemia, goal LDL below 100 11/04/2022 8:53 AM EDT LIPID PANEL WITH DIRECT LDL IF TG IS HIGH Lab Routine HTN, goal below 140/90 S/P AVR (aortic valve replacement) Dyslipidemia, goal LDL below 100 11/04/2022 8:53 AM EDT Health Maintenance Due Date Last Done Comments [...] this encounter Medical Devices Implanted Type Area Diamond Blender Device Identifier Shelf Expiration Date Model / Serial / Lot Valve Aor Rogers Ii 27mm T505 - [id number] Implanted:Qty : 1 on 02/10/2013 at OR [facility] Tissue - Non Human N/A: Aorta [employer] : CARDIAC SURGERY 10/11/2015 27-T505 / [id number] / Sut Steel 6 M654g - [id number] Implanted:Qty : 6 on 02/10/[place] [facility]/A: Chest DO NOT USE 09/21/2017 M654G / / [id number] documented as of this encounter Visit Diagnoses Diagnosis HTN, goal below 140/90 Unspecified essential hypertension S/P AVR (aortic valve replacement) Heart valve replaced by other means Dyslipidemia, goal LDL below 100 Other and unspecified hyperlipidemia documented in this encounter Advance Directives Latest Code Status on File Code Status Date Activated Date Inactivated Comments Full Code 02/10/2013 10:59 AM 02/14/2013 2:29 PM Th is order reflects the patients wishes and were consensually agreed upon. Care Teams Counselor/Art Therapist Relationship Specialty Start Date End Date Damion Gibson III, MD [address] [facility] [place] [address] PCP - General Family Medicine 11/29/12 documented as of this encounter
--- OUTSIDE RECORDS SUMMARY | 2023-04-20 05:45 | External Medical Summary ---
Author Name Unknown Address Unknown Organization [facility] [address] [place] [address] Laboratory Report Ordering Provider Test Date Status MARLEY JEAN 11/04/2022 08:53:22 Final Observation Date Value Abnormality Reference (Units ) Status BUN 11/04/2022 08:53:22 19 6-20 (mg/dL) Final Creatinine 11/04/2022 08:53:22 0.9 0.6-1.2 (mg/dL) Final Glomerular filtration rate/1.73 sq M.predicted [Volume Rate/Area] in Serum, Plasma or Blood by Creatinine-based formula (CKD-EPI) 11/04/2022 08:53:22 89 >=60 (mL/min) Final eGFR is calculated based on the CKD-EPI 2020 equation SODIUM 11/04/2022 08:53:22 142 135-146 (m mol/L) Final Potassium 11/04/2022 08:53:22 4.4 3.5-5.1 (m mol/L) Final Cl 11/04/2022 08:53:22 104 98-107 (mm ol/L) Final CO2 11/04/2022 08:53:22 27 22-32 (mmo l/L) Final Anion gap 11/04/2022 08:53:22 11 7-15 (mmol /L) Final Glucose 11/04/2022 08:53:22 94 70-120 (mg /dL) Final Albumin 11/04/2022 08:53:22 4.4 3.8-5.0 (g /dL) Final AST (Aspartate aminotransferase) 11/04/2022 08:53:22 17 10-50 (U/L) Final Alk Phos 11/04/2022 08:53:22 73 35-130 (U/ L) Final Bilirubin, Total 11/04/2022 08:53:22 1.1 <=1 .2 (mg/dL) Final Calcium 11/04/2022 08:53:22 9.5 8.4-10.2 ( mg/dL) Final Protein 11/04/2022 08:53:22 6.9 6.0-8.3 (g /dL) Final ALT (Alanine aminotransferase) 11/04/2022 08:53:22 11 10-50 (U/L) Final [facility]forming Location [facility] [address] [place] [address]
[2023-04-20] MEDS: Heparin IV Adult Wt-Based Low-Dose *NO* INITIAL Bolus Protocol IV STA (05:57)
--- NOTE | 2023-04-20 06:23 | Critical Care Consultation ---
Date of Consultation April 20, 2023 Assessment & Plan (1) Pulmonary emboli: Patient with elevated D-dimer 10,000. Underwent CTA chest which revealed bilateral PE in all lobes of the lung with evidence of right heart strain. Patient currently maintaining oxygenation on room air, without respiratory d istress or complaints of shortness of breath. Currently hemodynamically stable with heart rate in the 50s. Troponin within normal limits. Denies familial history of clot -Started on low-dose heparin drip, as patient has hematoma/laceration of scalp. Will likely need transition to oral anticoagulation when appropriate -Hypercoagulable panel pending -Lateral lower extremity Doppler pending -Follow-up TTE - will likely need cancer screening -Admitted to ICU for further monitoring at this time (2) Laceration of scalp: CT head negative for acute intracranial process. No current neurological symptoms. Appears to have sustained concussion. Neurology consulted. Monitor for now (3) Hypertension: Hold antihypertensives for now given PE with right heart strain. Restart when appropriate (4) Hyperlipidemia: Continue statin (5) H/O aortic valve replacement: No issue at this time. Continue ASA when appropriate History of Present Illness Attending Physician: Mason Bragg MD History of Present Illness Patient is a 67-year-old male with past medical history HLD, HTN presented to the emergency department after syncopal event in which the patient was found unconscious by his in the kitchen with head laceration. He was taken to the emergency department and CT head and cervical spine negative. He reports having a upper respiratory tract infection over the past 2 days in which he spent most of the day in bed. Lab work revealed elevated D-dimer and underwent CTA chest, which showed bilateral pulmonary emboli involving all lobes of both lungs with evidence of right heart strain. He remained hemodynamically stable, and does not report shortness of breath, currently on room air without respiratory distress. Patient was started on heparin drip. He was admitted to ICU for further management at this time. Allergies Allergy/AdvReac Type Severity Reaction Status Date / Time No Known Allergies Allergy Unverified 12/08/12 08:52 Home Medications Medication Instructions Recorded Confirmed Type aspirin 81 mg tablet,delayed 81 mg PO DAILY 04/20/23 04/20/23 History release atorvastatin 10 mg tablet 5 mg PO DAILY 04/20/23 04/20/23 History carvedilol 12.5 mg tablet 12.5 mg PO BID 04/20/23 04/20/23 History lisinopril 20 1 tab PO DAILY 04/20/23 04/20/23 History mg-hydrochlorothiazide 12.5 mg tablet Patient History Medical History (Updated 04/20/23 @ 06:19 by MARTINEZ Tamayo) Hyperlipidemia Hypertension Surgical History (Updated 04/20/23 @ 06:36 by MARTINEZ Tamayo) H/O aortic valve replacement Social History Smoking Status: Former smoker Tobacco Type: Cigarettes Smoking End Date: 1983; Hx Alcohol Use: Yes Alcohol type: wine and hard liquor Hx Substance Use: No Preferred Language: Amharic Communication Ability: Effective Auto Body Technician Required: No Beliefs That Will Affect Care: None Current Living Situation: Spouse Other Information That Helps Us Care for You: No Feels Safe at Home: Yes Safety Concerns: Feels Safe At This Time Assistive Devices: Glasses Assistive Devices Comment: reading glasses Review of Systems Review of Systems: Patient reports dizziness preceding syncopal episode which is since resolved. Sore throat and generalized weakness over the past 2 days currently improving. He denies headache, changes in vision, changes in gait or tingling, cough, shortness of breath, chest pain or palpitations, abdominal pain, nausea vomiting or diarrhea, swelling in hands or feet. Physical Exam Constitutional: cooperative and comfortable; no acute distress Eyes: PERRL, conjunctivae normal, anicteric sclerae ENMT: external ear and nose normal, oropharynx normal Neck: trachea midline, no thyromegaly Respiratory: normal respiratory effort, lungs clear to auscultation Cardiovascular: RRR, no murmur, no edema Heart Sounds: normal S1 and normal S2 Vessels: no JVD Gastrointestinal (Abdomen): normal bowel sounds, soft, nontender, no hepatosplenomegaly Musculoskeletal: no cyanosis or clubbing, extremities motor strength 5/5 Skin: no rashes, warm and dry Neurologic: PERRL, EOMI, accommodation nl, no face palsy, no dysarthria Psychiatric: A+Ox3, euthymic affect Results & Data Results & Data Vital Signs (Past 12 Hours) Vital Signs Temp Pulse Pulse Resp BP Pulse Ox O2 Del Method 04/20/23 05:57 37 C 63 16 96 Room Air 04/20/23 05:30 143/81 H 04/20/23 05:30 56 L 17 95 02/27/24 05:01 54 L 16 116/70 95 04/20/23 04:31 63 16 130/65 90 04/20/23 03:30 57 L 12 98/59 L 96 04/20/23 03:00 57 L 18 123/76 95 04/20/23 02:21 62 04/19/23 23:50 61 16 97 Room Air 04/19/23 23:40 58 L 17 97 Room Air 04/19/23 23:30 109/63 04/19/23 23:30 57 L 20 96 Room Air 04/19/23 23:20 57 L 19 96 Room Air 04/19/23 23:10 65 15 96 Room Air 04/19/23 23:07 59 L 13 04/19/23 23:07 111/62 04/19/23 22:55 59 L 16 95 Room Air 04/19/23 22:50 60 15 95 Room Air 04/19/23 22:48 95 Room Air 04/19/23 22:40 57 L 16 96 Room Air 04/19/23 22:33 36.6 C 55 L 18 129/80 96 Room Air 04/19/23 22:31 120/81 04/19/23 22:31 57 L 18 98 Room Air 04/19/23 22:30 57 L 15 96 Room Air 04/19/23 22:29 57 L 15 96 Room Air 04/19/23 22:29 57 L O2 Flow Rate 04/20/23 05:57 04/20/23 05:30 04/20/23 05:30 04/20/23 05:01 04/20/23 04:31 04/20/23 03:30 04/20/23 03:00 04/20/23 02:21 04/19/23 23:50 04/19/23 23:40 04/19/23 23:30 04/19/23 23:30 04/19/23 23:20 04/19/23 23:10 04/19/23 23:07 04/19/23 23:07 04/19/23 22:55 04/19/23 22:50 04/19/23 22:48 0 04/19/23 22:40 04/19/23 22:33 04/19/23 22:31 04/19/23 22:31 04/19/23 22:30 04/19/23 22:29 04/19/23 22:29 Diagnostic Findings ADDENDUM ADDENDUM: 04/20/23 03:18 Call Doctor Regarding Pulmonary Embolism, called Dr. Bonilla on 04/20 03:18 (-05:00) Electronically signed by: Ashish Chau MD Electronically signed by: Ashish Chau MD 04/20/23 02:59 AM ADDENDUM END Exam(s): CTA CHEST W/WO Contrast IV Amt: 118 ml optiray 320 EXAM: CT Angiography Chest With Intravenous Contrast CLINICAL HISTORY: syncope. TECHNIQUE: Axial computed tomographic angiography images of the chest with intravenous contrast. CTDI is 21.37 mGy and DLP is 507.34 mGy-cm. Automated exposure control was utilized for the study. A dose lowering technique was utilized adhering to the principles of ALARA. MIP reconstructed images were created and reviewed. CONTRAST: Patient received 118 ml optiray 320 of IV contrast COMPARISON: No relevant prior studies available. FINDINGS: Pulmonary arteries: Pulmonary embolism noted involving the subsegmental right apical and anterior apical segments, right middle lobe and proximal right anterior lateral and posterior basal segments. There is pulmonary emboli noted involving the left lingular segments and proximal left lower lobe. Aorta: No acute findings. No thoracic aortic aneurysm. Lungs: No focal airspace consolidation. Pleural space: Unremarkable. No significant effusion. No pneumothorax. Heart: Asymmetric enlargement of the right ventricle with the RV/LV ratio at 1.16. No pericardial effusion. Evidence of aortic valve replacement. Bones/joints: No acute fracture. No dislocation. Soft tissues: Unremarkable. Lymph nodes: Unremarkable. No enlarged lymph nodes. IMPRESSION: 1. Bilateral pulmonary emboli noted involving all lobes of both lungs, as detailed above. Evidence of right heart strain with the RV/LV ratio measuring 1.16. 2. No focal airspace consolidation. No pleural effusion or pneumothorax. Communications: Call Doctor Pulmonary Embolism Electronically signed by: Ashish Chau MD 04/20/23 02:59 AM Coding Level of Care Code 24508 IN/OBS CONSULT LVL 2,35M Diagnoses Pulmonary emboli I26.99 Laceration of scalp S01.01XA Hypertension I10 Hyperlipidemia E78.5 H/O aortic valve replacement Z95.2 Time Spent (min) 42
[2023-04-20 07:02] LABS: Estimated Average Glucose 108 mg/dl; Hemoglobin A1C 5.4 % (4.5-5.6)
[2023-04-20] MEDS: ICU Protocol for HYPERglycemia SCH (07:36)
[2023-04-20 07:48] LABS: Basophils # (auto) 0.02 K/uL (0.00-0.20); Basophils % (auto) 0.3 %; Eosinophils # (auto) 0.07 K/uL (0.00-0.50); Eosinophils % (auto) 0.9 %; Hematocrit (blood only) 38.6 % (42.0-52.0); Hemoglobin 12.9 g/dl (14.0-18.0); Immature Granulocytes # (auto) 0.02 K/uL (0.01-0.20); Immature Granulocytes % (auto) 0.3 %; Lymphocytes # (auto) 0.85 K/uL (1.20-3.40); Lymphocytes % (auto) 11.5 %; Mean Corpuscular Hemoglobin 30.2 pg (25.0-34.0); Mean Corpuscular Hgb Conc 33.4 g/dL (32.0-36.0); Mean Corpuscular Volume 90.4 fL (80.0-100.0); Mean Platelet Volume 10.6 fL (9.4-12.4); Monocytes # (auto) 0.82 K/uL (0.11-0.59); Monocytes % (auto) 11.1 %; Neutrophils # (auto) 5.59 K/uL (1.40-6.50); Neutrophils % (auto) 75.9 %; Platelet Count 141 K/uL (130-400); RDW Coefficient of Variation 13.3 % (11.5-14.5); RDW Standard Deviation 43.8 fL (36.4-46.3); Red Blood Count 4.27 M/uL (4.70-6.10); White Blood Count 7.37 K/ul (4.8-10.8)
[2023-04-20 08:02] LABS: Calcium 8.7 mg/dl (8.6-10.3); Creatinine Clr Calc Pharmacy 87.6 ml/min; Est GFR (African American) 105.6 ml/min; Est GFR (Non-African American) 91.1 ml/min; Potassium 3.7 mmol/L (3.5-5.1)
[2023-04-20 08:09] LABS: Troponin I High Sensitivity 8.4 pg/ml (0-20)
--- NOTE | 2023-04-20 10:11 | CT Scan Report ---
CT OF THE HEAD WITHOUT CONTRAST CLINICAL HISTORY: ffup, concussion, scalp hematoma COMPARISON STUDY: Head CT April 19, 2023. CT DOSE: 625.8 mGy.cm TECHNIQUE: Helical axial images of the head were obtained without IV contrast. Automated exposure con trol was utilized for the study. A dose lowering technique was utilized adhering to the principles o f ALARA. FINDINGS: No acute intracranial hemorrhage, midline shift or mass effect is present. Ventricular syst em is unremarkable. Basal cisterns are patent. There are no extra-axial collections. White matter hyp odensities favor small vessel disease. There is bilateral basal ganglia calcification. Left temporal scalp contusion is present. There is no calvarial fracture. . Right maxillary sinus mucous retention cyst is incidentally noted. Lucency within the zygomatic arch likely reflects a suture. IMPRESSION: 1. No acute intracranial findings. 2. Left temporal scalp contusion. No calvarial fracture. ACT 112: Negative or not required by law. Electronically signed by: Gee Diaz M.D. 04/20/2023 10:10 AM
--- NOTE | 2023-04-20 10:31 | Electrocardiogram Report ---
Test Reason : Blood Pressure : / mmHG Vent. Rate : 058 BPM Atrial Rate : 058 BPM P-R Int : 168 ms QRS Dur : 088 ms QT Int : 420 ms P-R-T Axes : 067 062 064 degrees QTc Int : 412 ms Sinus bradycardia Otherwise normal ECG No previous ECGs available Confirmed by Gio Alanis ([id number]) on 04/20/2023 10:31:12 AM Referred By: REFERRED SELF Confirmed By:Gio Alanis
--- NOTE | 2023-04-20 10:39 | Ultrasound Report ---
BILATERAL LOWER EXTREMITY VENOUS DOPPLER CLINICAL HISTORY: pe workup COMPARISON STUDY: No previous studies for comparison. TECHNIQUE: Sonography of the deep venous system of the bilateral lower extremities was performed. Co mpression and augmentation were evaluated. FINDINGS: There is no deep venous thrombus within the right lower extremity. Note is made of deep cheryl ous thrombus within the left femoral vein. No additional sites of deep venous thrombus are present. IMPRESSION: Deep venous thrombus within the left femoral vein. ACT 112: Negative or not required by law. Electronically signed by: Gee Diaz M.D. 04/20/2023 10:38 AM
[2023-04-20] MEDS: POTASSIUM CHLORIDE CRTAB 20 MEQ TABCR PO ONE (10:48)
[2023-04-20 11:55] LABS: Hematocrit (blood only) 38.2 % (42.0-52.0)
[2023-04-20 12:20] LABS: ANTI-Xa, LMWH(Low Molecular Wt 0.21 IU/ML (< 0.10); ANTI-Xa, UFH(UnfractionatedHep 0.21 IU/ml (0.3-0.7)
[2023-04-20 13:38] LABS: Appearance Urine Clear (Clear); Bacteria Urine Automated Negative (Negative); Bilirubin Urine Negative (Negative); Blood Urine Negative (Negative); Color Urine Dark Yellow; Glucose Urine UA Negative (Negative); Ketones Urine Trace (Negative); Leukocyte Esterase Urine Negative (Negative); Nitrite Urine Negative (Negative); Protein Urine Trace (Negative); Specific Gravity Urine > 1.045 (1.000-1.030); Urobilinogen Urine Negative (Negative); pH Urine 5.5 (4.5-7.5)
--- NOTE | 2023-04-20 13:43 | Communication Note ---
Date of Service: April 20, 2023 Patient was seen and examined at bedside. 67-year-old male with PMH of severe AR s/p bioprosthetic AVR, proximal ascending thoracic aorta enlargement, HTN, HLD, chronic bradycardia, past tobacco abuse presented 04/20 with unwitnessed syncopal event. Per patient, he had 2 days of cough and cold symptoms prior to arrival, he was mostly confined to bed during this time, finally the day prior to arrival he started to move around. During the night, he got up to get something in the kitchen when he felt lightheaded and fell to the floor. He hit his head. Patient denies any chest pain or shortness of breath or palpitation. No tongue biting/incontinence symptoms. No unusual weight loss. He is being managed for the following: Bilateral pulmonary embolism likely secondary to LLE DVT -first occurrence, unprovoked. Patient fairly active/goes to the gym regularly except for decreased activity for 2 days prior to arrival. Syncope: Syncope likely secondary to hypotension secondary to cardiac strain due to PE Patient came in with unwitnessed syncope. Patient denies any chest pain or palpitation at presentation. CTA chest with bilateral pulmonary emboli with evidence of right heart strain. No focal airspace consolidation. C-spine CT with no acute finding. CT head with no acute intracranial hemorrhage. Noted left temporal scalp hematoma. BLE venous Doppler with DVT within the left femoral vein. Repeat CT head 04/20 later in the morning with a stable left temporal scalp hematoma. No acute intracranial finding. At bedside exam, patient on room air, heart rate at his baseline, no chest pain or shortness of breath. Patient already on heparin drip, hemoglobin is stable around 13. Continue to monitor H&H. Hypercoagulable panel pending. Follow-up with echo. BNP 166. trop x 3 neg. Pulmonology on board, appreciate recommendation. Patient will need to follow-up with hematology upon discharge. Patient to follow-up with PCP upon discharge for age appropriate cancer screening including colonoscopy. Scalp hematoma: Left temporal area Cerebral concussion Patient had unwitnessed fall and hit head CT head as above Patient currently stable, hematoma stable. Continue to follow. Neurology consult, await recommendation. c/w Neurochecks. CT head w/ any acute changes in mentation. Other chronic medical conditions: Continue with/resume home meds as and when able. hx valvular heart disease (hx severe aortic regurgitation status post bioprosthetic AVR; mild MR/TR, TTE 2022) - Hold home aspirin for now given hematoma in light of anticoagulation for blood clot. hx proximal ascending thoracic aorta enlargement Chronic bradycardia hyperlipidemia, on statin Rx past tobacco abuse DVT prophylaxis. on Heparin drip. Full code
[2023-04-20 14:46] LABS: RBC Urine Automated 0-4 /hpf (0-4)
[2023-04-20 19:02] LABS: ANTI-Xa, UFH(UnfractionatedHep 0.24 IU/ml (0.3-0.7)
--- NOTE | 2023-04-20 20:27 | Neurology Consultation ---
Date of Consultation April 20, 2023 Assessment & Plan (1) Syncope: Plan 67 y/o male with history of HTN, HLD, and aortic valve replacement that presented following an episode of loss of consciousness and found to have bilateral pulmonary emboli. Low suspicion for seizure given clinical history, with event most likely representing syncope. Initial CTH with left temporal scalp contusion but no acute intracranial findings and repeat CTH today with no acute intracranial findings. 1. MRI brain w/wo 2. EEG 3. Neurochecks q2 4. Seizure precautions 5. Syncope work-up per primary, suspected per primary to be due to hypotension secondary to cardiac strain Telehealth Consultation Telehealth Information Telehealth Information: I performed this visit using a real-time telehealth connection between my location and the patients location ([facility]). After connecting through interactive tele-video, patient was identified by name and date of and/or wristband check.Patient (or authorized healthcare title insurance sales representative) was informed that this was a telemedicine visit and it was being conducted confidentially over secure lines. My office door was closed and no one else was present in the room with me.Patient (or authorized healthcare title insurance sales representative) provided consent to proceed with the visit, expressed an understanding of privacy and security of the telemedicine visit, and gave permission to have a hospital title insurance sales representative in the room in order to assist with the visit and to conduct portions of the visit, as needed. I informed the patient (or authorized healthcare title insurance sales representative) that I reviewed their record and presented the opportunity for them to ask any questions regarding the visit today. The patient agreed to participate. History of Present Illness Reason for Consultation: concussion Requesting Physician: Darrell Jarvis MD Attending Physician: Mason Bragg MD History of Present Illness 67 y/o male that presented following a suspected syncopal episode. He states that he had been having a URI for two days and was taking over the counter medications. On the first night, he had trouble sleeping but after that his sleeping improved. On yesterday, he went downstairs and ate dinner and watched television with his . Later, he went to stood up and felt dizzy. The next thing he remembers, he was in the ambulance. His did tell him that when he came to on the floor at home, he was able to stand up but he does not recall that. He denies any similar prior episodes. He denies any tongue biting or incontinence. He denies any confusionor lethargy following the event. He denies any history of seizures. He also denies having any weakness, numbness/tingling, change in speech, vision loss, diplopia, headache, confusion, difficulty with concentration or memory difficulty, or gait imbalance following the event. Allergies Allergy/AdvReac Type Severity Reaction Status Date / Time No Known Allergies Allergy Unverified 12/08/12 08:52 Home Medications Medication Instructions Recorded Confirmed Type aspirin 81 mg tablet,delayed 81 mg PO DAILY 04/20/23 04/20/23 History release atorvastatin 10 mg tablet 5 mg PO DAILY 04/20/23 04/20/23 History carvedilol 12.5 mg tablet 12.5 mg PO BID 04/20/23 04/20/23 History lisinopril 20 1 tab PO DAILY 04/20/23 04/20/23 History mg-hydrochlorothiazide 12.5 mg tablet Patient History Medical History (Updated 04/20/23 @ 08:07 by Kylie Bonilla DO) Hyperlipidemia Hypertension Surgical History (Updated 04/20/23 @ 06:36 by MARTINEZ Tamayo) H/O aortic valve replacement Social History Smoking Status: Former smoker Tobacco Type: Cigarettes Smoking End Date: 1983; Hx Alcohol Use: Yes Alcohol type: wine and hard liquor Hx Substance Use: No Preferred Language: Russian Communication Ability: Effective Hawk Missile System Crewmember Required: No Beliefs That Will Affect Care: None Current Living Situation: Spouse Other Information That Helps Us Care for You: No Feels Safe at Home: Yes Safety Concerns: Feels Safe At This Time Assistive Devices: Glasses Assistive Devices Comment: reading glasses Review of Systems Negative except as listed in HPI Physical Exam AAO X 3 No aphasia or dysarthria VFF grossly intact EOMI, no nystagmus Facial sensations intact No facial asymmetry Tongue protrudes midline Motor: Moves all four extremities antigravity Sensation: Intact to light touch throughout Cerebellar: FTN inact Results & Data Vital Signs (Past 12 Hours) Vital Signs Pulse Resp BP Pulse Ox O2 Del Method 04/20/23 19:21 53 L 04/20/23 18:00 101/68 04/20/23 18:00 62 16 95 04/20/23 17:01 111/82 04/20/23 17:01 57 L 19 94 04/20/23 17:00 59 L 17 96 04/20/23 16:30 64 20 94 04/20/23 16:01 121/79 04/20/23 16:01 58 L 15 95 04/20/23 16:00 58 L 04/20/23 16:00 63 14 94 04/20/23 15:30 55 L 16 96 04/20/23 15:00 123/96 04/20/23 15:00 54 L 18 97 04/20/23 14:30 52 L 18 95 04/20/23 14:00 104/72 04/20/23 14:00 61 18 96 04/20/23 13:01 53 L 16 04/20/23 13:01 114/69 04/20/23 13:00 52 L 14 96 04/20/23 12:16 130/80 04/20/23 12:16 54 L 19 92 04/20/23 12:00 59 L 19 94 04/20/23 11:00 55 L 19 95 04/20/23 10:15 58 L 23 94 04/20/23 09:00 109/73 04/20/23 09:00 53 L 17 95 04/20/23 08:41 Room Air Laboratory Results WBC 7.37, HGB 13.0, HCT 38.2, Plts 141, INR 1.1, D Dimer 779[address], NA 139, K 3.7, Chloride 105, CO2 28, BUN 16, Creatinine 0.8, Glucose 103, A1C 5.4, Lactate 1.2, Calcium 8.87, Magnesium 1.9, Total bilirubin 1.4, AST 18, ALT 10, Alkaline phosphatase 70, total CK 59, troponin 8.4, BNP 166, albumin 4.4, PSA 0.449, TSH 1.884, UA negative leukocyte esterase, negative nitrite, SARS COV 2 negative, Influenzae negative, RSV negative Diagnostic Findings CTH 04/20:1. No acute intracranial findings. 2. Left temporal scalp contusion. No calvarial fracture. Venous Doppler: Deep venous thrombus within the left femoral vein. CTH 04/19:1. No intracranial hemorrhage or other acute intracranial abnormality.2. Left temporal scalp hematoma.3. Global parenchymal volume loss with chronic microvascular ischemic changes. Chest CTA:Bilateral pulmonary emboli noted involving all lobes of both lungs, as detailed above. Evidence of right heart strain with the RV/LV ratio measuring 1.16.No focal airspace consolidation. No pleural effusion or pneumothorax. Cervical Spine CT: No acute fracture or traumatic malalignment of the cervical spine. TTE: EF > 70%, mild right ventricular enlargement , mild biatrial enlargement, aortic bioprosthetic valve, no evidence of ASD but resolution does not allow for assessment of PFO
[2023-04-20 20:49] LABS: Hematocrit (blood only) 38.2 % (42.0-52.0); Hemoglobin 13.2 g/dl (14.0-18.0)
[2023-04-21 05:03] LABS: Basophils # (auto) 0.02 K/uL (0.00-0.20); Basophils % (auto) 0.3 %; Eosinophils % (auto) 3.2 %; Hematocrit (blood only) 37.5 % (42.0-52.0); Hemoglobin 12.5 g/dl (14.0-18.0); Immature Granulocytes # (auto) 0.01 K/uL (0.01-0.20); Immature Granulocytes % (auto) 0.2 %; Lymphocytes # (auto) 0.92 K/uL (1.20-3.40); Lymphocytes % (auto) 14.6 %; Mean Corpuscular Hemoglobin 30.1 pg (25.0-34.0); Mean Corpuscular Hgb Conc 33.3 g/dL (32.0-36.0); Mean Corpuscular Volume 90.4 fL (80.0-100.0); Mean Platelet Volume 10.4 fL (9.4-12.4); Monocytes # (auto) 0.83 K/uL (0.11-0.59); Monocytes % (auto) 13.2 %; Neutrophils # (auto) 4.32 K/uL (1.40-6.50); Neutrophils % (auto) 68.5 %; Platelet Count 134 K/uL (130-400); RDW Coefficient of Variation 13.1 % (11.5-14.5); RDW Standard Deviation 43.1 fL (36.4-46.3); Red Blood Count 4.15 M/uL (4.70-6.10)
[2023-04-21 05:10] LABS: BUN Creatinine Ratio 18.9 (10-20); Calcium 8.2 mg/dl (8.6-10.3); Creatinine Clr Calc Pharmacy 94.7 ml/min; Est GFR (African American) 109.1 ml/min; Est GFR (Non-African American) 94.1 ml/min; Potassium 3.7 mmol/L (3.5-5.1)
[2023-04-21 05:25] LABS: ANTI-Xa, UFH(UnfractionatedHep 0.29 IU/ml (0.3-0.7)
--- NOTE | 2023-04-21 07:28 | Hospitalist Progress Note ---
Date of Service April 21, 2023 Assessment & Plan (1) Pulmonary emboli: Plan: Pulmonary emboli with strain High risk on computed PESI score given transient hypotension First occurrence unprovoked event Rule out hypercoagulability Rule out LE source as clot Syncope likely secondary to hypotension secondary to cardiac strain Cerebral concussion secondary to above Patient sustained scalp hematoma left temporal area hx valvular heart disease (hx severe aortic regurgitation status post bioprosthetic AVR; mild MR/TR, TTE 2022) hx proximal ascending thoracic aorta enlargement Chronic bradycardia hyperlipidemia, on statin Rx Hyperglycemia rule out DM past tobacco abuse ICU Hypercoag workup LE Dopplers rule out DVT Pulmonology consult re: PE with strain IV heparin for now after discussion with elder counselor. (Patient prefers low-dose protocol given higher risk of bleeding with standard protocol/bolus given scalp hematoma from concussion.) Hold home aspirin for now given hematoma in light of anticoagulation for blood clot TTE Re: Syncope, PE with strain Appropriate to hold patient BP meds for now given borderline BP and hypotensive episode. [facility] neurochecks Repeat CT head [address] head Neurology consult Re: Cerebral concussion Check hemoglobin A1c DVT prophylaxis. Heparin Full code 67-year-old male with PMH of severe AR s/p bioprosthetic AVR, proximal ascending thoracic aorta enlargement, HTN, HLD, chronic bradycardia, past tobacco abuse presented 04/20 with unwitnessed syncopal event. Per patient, he had 2 days of cough and cold symptoms prior to arrival, he was mostly confined to bed during this time, finally the day prior to arrival he started to move around. During the night, he got up to get something in the kitchen when he felt lightheaded and fell to the floor. He hit his head. Patient denies any chest pain or shortness of breath or palpitation. No tongue biting/incontinence symptoms. No unusual weight loss. He is being managed for the following: Bilateral pulmonary embolism likely secondary to LLE DVT -first occurrence, unprovoked. Patient fairly active/goes to the gym regularly except for decreased activity for 2 days prior to arrival. Syncope: Syncope likely secondary to hypotension secondary to cardiac strain due to PE Patient came in with unwitnessed syncope. Patient denies any chest pain or palpitation at presentation. CTA chest with bilateral pulmonary emboli with evidence of right heart strain. No focal airspace consolidation. C-spine CT with no acute finding. CT head with no acute intracranial hemorrhage. Noted left temporal scalp hematoma. BLE venous Doppler with DVT within the left femoral vein. Repeat CT head 04/20 later in the morning with a stable left temporal scalp hematoma. No acute intracranial finding. At bedside exam, patient on room air, heart rate at his baseline, no chest pain or shortness of breath. Patient already on heparin drip, hemoglobin is stable around 13. Continue to monitor H&H. Hypercoagulable panel pending. Follow-up with echo. BNP 166. trop x 3 neg. Pulmonology on board, appreciate recommendation. Patient will need to follow-up with hematology upon discharge. Patient to follow-up with PCP upon discharge for age appropriate cancer screening including colonoscopy. Scalp hematoma: Left temporal area Cerebral concussion Patient had unwitnessed fall and hit head CT head as above Patient currently stable, hematoma stable. Continue to follow. Neurology consult, await recommendation. c/w Neurochecks. CT head w/ any acute changes in mentation. Other chronic medical conditions: Continue with/resume home meds as and when able. hx valvular heart disease (hx severe aortic regurgitation status post biopros thetic AVR; mild MR/TR, TTE 2022) - Hold home aspirin for now given hematoma in light of anticoagulation for blood clot. hx proximal ascending thoracic aorta enlargement Chronic bradycardia hyperlipidemia, on statin Rx past tobacco abuse Admission and Anticipated Discharge Date Admission Date: April 20, 2023 Results & Data Results & Data Vital Signs (Past 12 Hours) Vital Signs Temp Pulse Pulse Resp BP BP Pulse Ox 04/21/23 06:18 36.5 C 53 L 12 97/66 L 96 04/21/23 04:02 36.5 C 57 L 16 94 04/21/23 04:01 144/85 H 04/21/23 03:55 63 95 04/21/23 02:00 123/70 04/21/23 02:00 53 L 14 95 04/21/23 00:00 119/75 04/21/23 00:00 54 L 21 94 04/20/23 23:24 55 L 04/20/23 22:00 129/82 04/20/23 22:00 58 L 18 95 04/20/23 20:00 99/56 L 04/20/23 20:00 54 L 13 96 O2 Del Method 04/21/23 06:18 Room Air 04/21/23 04:02 Room Air 04/21/23 04:01 04/21/23 03:55 04/21/23 02:00 04/21/23 02:00 04/21/23 00:00 04/21/23 00:00 04/20/23 23:24 04/20/23 22:00 04/20/23 22:00 04/20/23 20:00 04/20/23 20:00 Laboratory Results Short CBC 04/20/23 04/20/23 04/20/23 Range/Units 07:09 11:38 20:31 WBC 7.37 (4.8-10.8) K/ul Hgb 12.9 L 13.0 L 13.2 L (14.0-18.0) g/dl Hct 38.6 L 38.2 L 38.2 L (42.0-52.0) % Plt Count 141 (130-400) K/uL 04/21/23 Range/Units 04:32 WBC 6.30 (4.8-10.8) K/ul Hgb 12.5 L (14.0-18.0) g/dl Hct 37.5 L (42.0-52.0) % Plt Count 134 (130-400) K/uL BMP 04/20/23 04/21/23 07:09 04:32 Sodium 139 139 Potassium 3.7 3.7 Chloride 105 105 Carbon Dioxide 28 27 BUN 16 14 Creatinine 0.80 0.74 Glucose 103 H 104 H Calcium 8.7 8.2 L Urine 04/20/23 Range/Units Unknown Urine Color Dark Yellow Urine Appearance Clear (Clear) Urine pH 5.5 (4.5-7.5) Ur Specific [place] > 1.045 H (1.000-1.030) Urine Protein Trace H (Negative) Urine Glucose (UA) Negative (Negative) Medications Administered Home Medications Medication Instructions Recorded Confirmed Last Taken aspirin 81 mg tablet,delayed 81 mg PO DAILY 04/20/23 04/20/23 Unknown release atorvastatin 10 mg tablet 5 mg PO DAILY 04/20/23 04/20/23 Unknown carvedilol 12.5 mg tablet 12.5 mg PO BID 04/20/23 04/20/23 Unknown lisinopril 20 1 tab PO DAILY 04/20/23 04/20/23 Unknown mg-hydrochlorothiazide 12.5 mg tablet Active Medications Generic Name Dose Route Start Last Admin Trade Name Freq PRN Reason Stop Dose Admin Heparin Sodium/Dextrose 25,000 units in 500 mls @ 20 mls/hr 04/20/23 05:00 04/21/23 05:51 Heparin Sodium/Dextrose IV 05/20/23 04:59 1,000 units/hr .Q24H PAOLA 20 mls/hr Titration Protocol 1,000 UNITS/HR
[2023-04-21] MEDS: ATORVASTATIN 10 MG TAB PO SCH (08:01)
--- NOTE | 2023-04-21 09:44 | Pulmonology Progress Note ---
Date of Service April 21, 2023 Assessment & Plan (1) Pulmonary emboli: Plan: IMPRESSION: 67-year-old male with a significant past medical history of porcine aortic valve replacement, hypertension, and hyperlipidemia who presented in the setting of syncope and scalp hematoma with findings consistent with bilateral pulmonary emboli. RECOMMENDATIONS: 1. Pulmonary emboli - Patient presenting with syncope. During evaluation, patient had D-dimer performed which was significantly elevated. CTA concerning for bilateral multiple pulmonary emboli. Slight strain was noted on initial CTA, however this was not verified with echocardiogram performed yesterday. Patient was initiated on low-dose heparin drip without bolus. He has remained hemodynamically stable and has not required supplemental oxygen. He was noted to have DVT of the lower extremity. Coagulopathy panel had been ordered. Recommendations moving forward would be consideration for anticoagulation with DOAC indefinitely given the unprovoked nature of the thromboembolic event. Would advocate for the initiation of DOAC therapy moving forward (preferably Eliquis). Would recommend follow-up with hematology in the next 3 months for evaluation and for recommendations of coagulopathy versus guidance of anticoagulation moving forward. Patient does not require follow-up CT PE study in the future unless he were develop worsening symptoms of dyspnea or other concerning symptoms. Patient has a scheduled echocardiogram in June of this year. This is convenient and will aid in follow-up evaluation from recent echocardiogram in the setting of active PE. Otherwise, would not recommend f ollow-up echocardiogram from a pulmonary perspective. Otherwise, the patient has been hemodynamically stable. He is not hypoxic. Will defer to primary service for management of other admitting diagnoses. Thank you for allowing us to participate in the care of this pleasant patient. Pulmonary medicine will sign off at this time. Admission and Anticipated Discharge Date Admission Date: April 20, 2023 Subjective Patient seen and evaluated at bedside. Offers no complaints at this time. He has been researching anticoagulant therapies. He is anxious to be discharged. Review of Systems Review of Systems: Unchanged from admission. Physical Exam Physical Exam: VITAL SIGNS - Vital signs and nursing notes were reviewed. GENERAL - 67-year-old male appearing his stated age who is in no acute distress. Communicates well with provider and answers questions appropriately. LUNGS - Chest wall evaluation demonstrates normal chest wall A:P diameter. Auscultation reveals clear breath sounds bilaterally without wheezes, rales, or rhonchi. CARDIAC - RRR with S1/S2. No murmur, rubs, or gallops appreciated. PSYCH - A&Ox3 and cooperates fully with examiner. Pt is very pleasant and interacts well with examiner. Results & Data Results & Data Vital Signs (Past 12 Hours) Vital Signs Temp Pulse Pulse Resp BP BP Pulse Ox 04/21/23 08:08 36.7 C 71 18 159/51 H 95 04/21/23 06:18 36.5 C 53 L 12 97/66 L 96 04/21/23 04:02 36.5 C 57 L 16 94 04/21/23 04:01 144/85 H 04/21/23 03:55 63 95 04/21/23 02:00 123/70 04/21/23 02:00 53 L 14 95 04/21/23 00:00 119/75 04/21/23 00:00 54 L 21 94 04/20/23 23:24 55 L 04/20/23 22:00 129/82 04/20/23 22:00 58 L 18 95 O2 Del Method 04/21/23 08:08 Room Air 04/21/23 06:18 Room Air 04/21/23 04:02 Room Air 04/21/23 04:01 04/21/23 03:55 04/21/23 02:00 04/21/23 02:00 04/21/23 00:00 04/21/23 00:00 04/20/23 23:24 04/20/23 22:00 04/20/23 22:00 PG Care Time/CCT Total # of Minutes Spent Total Time Spent with Patient: Total time spent is greater than 50% in coordination of care (as documented) at patient's floor/unit and/or counseling patient: Coding Level of Care Code 01049 SUB INP/OBS CARE 2/35MIN Diagnoses Pulmonary emboli I26.99
--- NOTE | 2023-04-21 11:40 | Magnetic Resonance Report ---
MRI OF THE BRAIN WITHOUT IV CONTRAST CLINICAL HISTORY: Syncope. Loss of consciousness. COMPARISON STUDY: CT of the brain dated 04/20/2023. TECHNIQUE: MRI of the brain was performed utilizing various T1 and T2-weighted sequences in the axial , sagittal, and coronal planes. IV contrast was not administered for this examination. FINDINGS: Brain parenchyma: There is age-related involutional change noting [id number] patchy subcortical and periventricular microangiopathic disease. There is no hemorrhage or mass effect. There is no res tricted diffusion to suggest acute ischemia. Maya-white matter differentiation is preserved. No extra -axial fluid collection is seen. The cerebellar tonsils are normal in configuration. Ventricles, sulci, and cisterns: Prominent secondary to involutional change. Pituitary and sella: Unremarkable. Intracranial vasculature: Normal flow voids are maintained at the skull base. Orbits: The bony orbits are grossly intact. Orbital contents are normal in appearance noting bilatera l ocular lens implants. Sinuses and mastoids: A 2.5 cm retention cyst and mild mucosal thickening is noted in the right maxil humera antrum. A 1.4 cm retention cyst is noted in the left maxillary sinus. There is also mild mucosal thickening in the ethmoid sinuses. The mastoid air cells are clear. Calvarium: Unremarkable. Soft tissues: There is a left parietal scalp contusion. Cervical cord: Partially visualized cervical spinal cord is normal in morphology and signal intensity . IMPRESSION: No acute intracranial abnormality. ACT 112: Negative or not required by law. Electronically signed by: Chas Méndez M.D. 04/21/2023 11:39 AM
[2023-04-21] MEDS: APIXABAN 5 MG TABLET PO SCH (12:19)
[2023-04-21] MEDS: HEPARIN DRIP~STOP ORDER ONE (12:20)
--- NOTE | 2023-04-21 18:14 | Electroencephalogram ---
EEG Procedure Note Date of Service April 21, 2023 Start / End Times Start Time: 09:25 End Time: 09:[address] Agueda Richards History A 67 year old male with syncopal episode. EEG performed for evaluation of epileptiform activity. Home Medication List Medication Instructions Recorded Confirmed Type aspirin 81 mg tablet,delayed 81 mg PO DAILY 04/20/23 04/20/23 History release atorvastatin 10 mg tablet 5 mg PO DAILY 04/20/23 04/20/23 History carvedilol 12.5 mg tablet 12.5 mg PO BID 04/20/23 04/20/23 History lisinopril 20 1 tab PO DAILY 04/20/23 04/20/23 History mg-hydrochlorothiazide 12.5 mg tablet apixaban 5 mg (74 tabs) tablets in 5 mg PO Q12H #74 ea 04/21/23 Rx a dose pack Inpatient Medication List Discontinued Medications Apixaban (Apixaban 5 Mg Tablet) 10 mg PO BID PAOLA Stop: 04/27/23 21:01 Last Admin: 04/21/23 12:19 Dose: 10 mg Documented By: JERRY Atorvastatin Calcium (Atorvastatin 10 Mg Tab) 5 mg PO DAILY PAOLA Stop: 05/21/23 08:59 Last Admin: 04/21/23 08:01 Dose: 5 mg Documented By: JERRY Heparin Sodium (Porcine) (Heparin Sod (Porcine) 1000 Unit/Ml) 1 units IV NOW ONE Stop: 04/20/23 03:37 Last Admin: 04/20/23 05:12 Dose: Not Given Documented By: SKYLER Heparin Sodium/Dextrose (Heparin Iv Adult Wt-Based Standard W/ Initial Bolus Protocol) 1 each IV NOW STA; Protocol Stop: 04/20/23 03:22 Last Admin: 04/20/23 05:12 Dose: Not Given Documented By: SKYLER Heparin Sodium/Dextrose (Heparin Iv Adult Wt-Based Low-Dose *No* Initial Bolus Protocol) 1 each IV ONE STA; Protocol Stop: 04/20/23 04:36 Last Admin: 04/20/23 05:57 Dose: Not Given Documented By: ZAIN Sodium Chloride (Nss) 1,000 mls @ 999 mls/hr IV .Q1H1M ONE Stop: 04/20/23 01:33 Last Infusion: 04/20/23 05:57 Dose: Infused Documented By: Admin: 04/20/23 01:17 Dose: 999 mls/hr Documented By: JOSSELYN Heparin Sodium/Dextrose (Heparin Sodium/Dextrose) 25,000 units in 500 mls @ 0.02 mls/hr IV .Q24H PAOLA; Protocol Stop: 05/20/23 03:44 Last Admin: 04/20/23 05:12 Dose: Not Given Documented By: SKYLER Potassium Chloride/Sodium Chloride (Normal Saline W/20 Meq Kcl) 20 meq in 1,000 mls @ 75 mls/hr IV .[id number] ONE; Protocol Stop: 04/20/23 17:02 Last Infusion: 04/20/23 09:53 Dose: Infused Documented By: Admin: 04/20/23 05:17 Dose: 75 mls/hr Documented By: SKYLER Heparin Sodium/Dextrose (Heparin Sodium/Dextrose) 25,000 units in 500 mls @ 20 mls/hr IV .Q24H PAOLA; Protocol Stop: 04/21/23 11:20 Last Titration: 04/21/23 12:20 Dose: Infused Documented By: JERRY Co-signed By: JUSTIN Admin: 04/21/23 08:01 Dose: 1,000 units/hr, 20 mls/hr Documented By: JERRY Co-signed By: UNA Titration: 04/21/23 08:01 Dose: Infused Documented By: JERRY Co-signed By: UNA Titration: 04/21/23 05:51 Dose: 1,000 units/hr, 20 mls/hr Documented By: JUAN JOSÉ Co-signed By: [id number] Titration: 04/21/23 02:09 Dose: 950 units/hr, 19 mls/hr Documented By: [id number] Co-signed By: JUAN JOSÉ Titration: 04/20/23 19:11 Dose: 950 units/hr, 19 mls/hr Documented By: [id number] Co-signed By: JESSE Titration: 04/20/23 12:24 Dose: 900 units/hr, 18 mls/hr Documented By: JESSE Co-signed By: IVORY Titration: 04/20/23 06:55 Dose: 850 units/hr, 17 mls/hr Documented By: JESSE Co-signed By: ZAIN Admin: 04/20/23 05:17 Dose: 850 units/hr, 17 mls/hr Documented By: SKYLER Co-signed By: MED Ioversol (Optiray 320 125ml) 125 ml IV ONCE ONE Stop: 04/20/23 01:47 Last Admin: 04/20/23 01:46 Dose: 118 ml Documented By: SANTOSH Garcia (Icu Protocol For Hyperglycemia) 1 each N/A ACHS PAOLA Stop: 04/22/23 07:29 Last Admin: 04/20/23 16:41 Dose: Not Given Documented By: Admin: 04/20/23 12:33 Dose: Not Given Documented By: Admin: 04/20/23 07:36 Dose: Not Given Documented By: JESSE Garcia (Heparin Drip~Stop Order) 1 each N/A ONE ONE Stop: 04/21/23 11:16 Last Admin: 04/21/23 12:20 Dose: 1 each Documented By: JERRY Potassium Chloride (Potassium Chloride Crtab 20 Meq Tabcr) 20 meq PO NOW ONE Stop: 04/20/23 09:46 Last Admin: 04/20/23 10:48 Dose: 20 meq Documented By: JESSE Description This is a 21 electrode EEG with a single channel dedicated to limited EKG. The electrodes were placed in accordance with the International 10-20 system. REPORT: At the onset of the EEG the patient is awake. The background is symmetric and well organized. The posterior dominant rhythm is 9-10 Hz. Anteriorly there is low amplitude faster frequencies. Photic stimulation does not induce any abnormalities, Drowsiness is characterized by reduced blink rate and decreased myogenic artifact. Interpretation IMPRESSION: This is a normal awake and drowsy routine EEG. There is no evidence of epileptiform activity.
--- NOTE | 2023-04-21 18:35 | Discharge Summary ---
Discharge Summary Date of Service April 21, 2023 Notes For Next Care Provider Medication Changes From Visit Held Coreg 12.5 mg BID 2/2 concerns of orthostasis prior to recent syncopal episode Started Eliquis 10mg BID x 7 days, 5mg BID therafter Admission HPI Per Admitting Provider History obtained from patient, family, and records. Medical history significant for valvular heart disease (hx severe aortic regurgitation status post bioprosthetic AVR; mild MR/TR, TTE 2022), proximal ascending thoracic aorta enlargement, hypertension, hyperlipidemia, chronic bradycardia, past tobacco abuse. 2 days history of cough and cold symptoms. No chest pain, no SOB. Not sure about sick contacts. Last night, patient got up to get something in the kitchen when he felt lightheaded. Unwitnessed syncopal event resulting in head trauma. Thud heard by patient's . Patient found to have a bleeding wound on the left side of the head. Patient remembers being more awake in the ambulance. No chest pain, no SOB, no tongue biting, no incontinence symptoms. No known personal/family history of blood clots. No recent recent prolonged car/air travel. Has not had screening colonoscopy. No unusual weight loss. Patient brought to the ER for evaluation. Lowest SBP of 90s at some point during ER stay. Medical History as above Surgical History : Bioprosthetic AVR, nevus removal Family History : Lung cancer, heart disease, thyroid disease Personal/Social history : Past tobacco abuse, occasional EtOH intake, [employer] professor Admission Exam Per Admitting Provider GENERAL: Comfortable, pleasant, no respiratory distress SKIN: Normal color, warm HEENT: [place] palpebral conjunctivae, no ptosis, moist buccal mucosa, tender swelling left temporal area NECK : Supple, no tenderness CHEST : CTA, no tenderness HEART : Bradycardic, systolic murmur ABDOMEN: no distention, nontender EXTREMITIES : No LE swelling/tenderness, no other conspicuous deformities noted NEUROLOGIC : Coherent, no facial asymmetry, no other gross focality Principal Dx & Hospital Course #1 = Principal Diagnosis (1) Pulmonary emboli: Plan Mr. Ayala is a 67 year old gentleman with history of severe AR s/p bioprosthetic AVR, proximal ascending thoracic aorta enlargement, HTN, HLD, past tobacco abuse presented 04/20 with unwitnessed syncopal event and found to have multiple pulmonary emboli and LLE DVT.. Per patient, he had 2 days of cough and cold symptoms prior to arrival, he was mostly confined to bed during this time, finally the day prior to arrival he started to move around. During the night, he got up to get something in the kitchen when he felt lightheaded and fell to the floor, with blunt trauma to head on ground. During evaluation, patient had D-dimer performed which was significantly elevated. CTA concerning for bilateral multiple pulmonary emboli. Slight strain was noted on initial CTA, however this noted on ECHO from 04/20. Patient was initiated on low-dose heparin drip without bolus. Throughout admission, he was noted to be relatively hypotensive given 2 antihypertensive agents at home. He did not require oxygen. He was started on eliquis and otherwise stable on day of discharge. #Syncopal episode ? of whether emboli caused event v patient reports orthostasis ongoing for last 6 months and he no longer checks BP at home MRI negative, EEG normal no orthostasis on exam since holding BP meds -Initially hypotensive, held coreg and lisinopril/hctz -BP up to 159 upon discharge with plan for resuming combo med and holding coreg until OP follow up #HTN Continue lisinopril/HCTZ Hold coreg given relative hypotension/bradycardia given reports of orthostasis months prior to presenting epidsode #Severe AVR s/p bioprosethic valve -continue ASA -Follow up cardiology upon dispo for medication management/BP follow up #Pulmonary emboli, unprovoked? #LLE DVT -Eliquis 10mg BID x 7 days (04/23) the 5mg BID thereafter -PCP follow up with heme On day of discharge, patient reports feeling well, laughing and denies any acute concerns. Discharge Exam Constitutional WD/WN, vitals as above Respiratory normal respiratory effort, lungs clear to auscultation Cardiovascular RRR, no murmur, no edema Gastrointestinal (Abdomen) normal bowel sounds, soft, nontender, no hepatosplenomegaly Musculoskeletal no cyanosis or clubbing, extremities motor strength 5/5 Updated Medication List Medication Instructions Recorded Confirmed Type aspirin 81 mg tablet,delayed 81 mg PO DAILY 04/20/23 04/20/23 History release atorvastatin 10 mg tablet 5 mg PO DAILY 04/20/23 04/20/23 History carvedilol 12.5 mg tablet 12.5 mg PO BID 04/20/23 04/20/23 History lisinopril 20 1 tab PO DAILY 04/20/23 04/20/23 History mg-hydrochlorothiazide 12.5 mg tablet apixaban 5 mg (74 tabs) tablets in 5 mg PO Q12H #74 ea 04/21/23 Rx a dose pack Hospital Stay Data Consultations 04/20/23 03:40 ED Decision to Admit Stat 04/20/23 05:06 Consult Neurology Routine 04/20/23 05:56 Consult Publishing Manager Routine Diagnostic Imagining Performed 04/19/23 22:51 CT cervical spine wo con Stat CT head/brain wo con Stat 04/20/23 01:18 CT angio chest dissec wo/w con Stat 04/20/23 05:56 US venous doppler LE BI Routine 04/20/23 10:00 CT head/brain wo con Urgent 04/21/23 07:36 MRI Brain [MR brain wo con] Routine Pending Results Patient Have Any Pending Studies at Discharge: No Discharge Instructions Given to Patient (Per Discharging Provider) You were admitted for a loss of consciousness and found to have new blood clots in your lungs, or pulmonary emboli. You were seen by the Sweeper Operator Highways and started on Eliquis (Apixaban), which is a blood thinner to help prevent further clots and aid your body in breaking down the clots that are present. You do not require follow up imaging unless you feel symptoms of shortness of breath or other concerns develop. You have a follow up Echocardiogram in July which you should keep. Your blood pressure was on the lower end while admitted. Please hold your Coreg 12.5mg two times a day. Please follow up with your Primary Care or your Bicycle I Assembler to determine if you need to resume this medication. Please take 10mg (2 tablets) 2 times a day for 7 days (WednesdayApril 27) then transition to 5mg (1 tablet) two times a day thereafter. Total Time Total Time Spent Total Time Spent (In Minutes): 45
--- NOTE | 2023-04-22 14:28 | Coding Query ---
CODING QUERY To promote full compliance with coding requirements relating to patient care, provider participation is requested in all cases of hosiery knitter uncertainty. Please assist us with the question(s) below: Coding Question(s): The Discharge Summary documents, regarding admission, " You were admitted for a loss of consciousness and found to have new blood clots in your lungs, or pulmonary emboli. You were seen by the Elevator Conductor and started on Eliquis (Apixaban), which is a blood thinner to help prevent further clots and aid your body in breaking down the clots that are present. You do not require follow up imaging unless you feel symptoms of shortness of breath or other concerns develop. You have a follow up Echocardiogram in July which you should keep. Your blood pressure was on the lower end while admitted. Please hold your Coreg 12.5mg two times a day. Please follow up with your Primary Care or your Deskidding Machine Operator to determine if you need to resume this medication.". The Neurology Consultation, documents, regarding loss of consciousness, "presented following an episode of loss of consciousness and found to have bilateral pulmonary emboli. Low suspicion for seizure given clinical history, with event most likely representing syncope. Initial CTH with left temporal scalp contusion but no acute intracranial findings and repeat CTH today with no acute intracranial findings," and documents, "Syncope work-up per primary, suspected per primary to be due to hypotension secondary to cardiac strain", and the H&P, documents, "Syncope likely secondary to hypotension secondary to cardiac strain", and the 04/20 Communication Note documents, "Syncope: Syncope likely secondary to hypotension secondary to cardiac strain due to PE", and the Discharge Summary documents, "Syncopal episode ? of whether emboli caused event v patient reports orthostasis ongoing for last 6 months and he no longer checks BP at home MRI negative, EEG normal no orthostasis on exam since holding BP meds -Initially hypotensive, held coreg and lisinopril/hctz -BP up to 159 upon discharge with plan for resuming combo med and holding coreg until OP follow up". Please specify below, in your clinical opinion, the diagnosis, most responsible for occasioning the inpatient admission: ( ) Loss of Consciousness due to Syncopal episode, most likely caused by possible hypotension due to cardiac strain due to Pulmonary Embolism. ( x ) Loss of Consciousness due to Syncopal episode, most likely caused by Pulmonary Embolism ( ) Loss of Consciousness due to Syncopal episode, most likely caused by Other: Please Specify ( ) Loss of Consciousness due to Other: Please Specify ( ) Loss of Consciousness with Unknown likely cause ( ) Pulmonary Embolism ( ) LLE DVT ( ) Pulmonary Embolism and LLE DVT equally ( ) Other: Please Specify Physician's Response(s): Thank you Samira Todd Principal Diagnosis: "that condition established after study, to be chiefly responsible for occasioning the admission of the patient to the hospital for care." Co-Existing Principal Diagnosis: "when two or more diagnoses equally meet the criteria for principal diagnosis as determined by the circumstances of admission, diagnostic work up, and/or therapy provided, and the Alphabetic Index, Tabular List, or another coding guideline does not provide sequencing direction, any one of the diagnoses may be sequenced first." "When the physician has documented what appears to be a current diagnosis in the body of the record, but has not included the diagnosis in the final diagnostic statement, the physician should be asked whether the diagnosis should be added." (Source [facility] 2 QTR90. p3-4) KATERINA
== END 2023-04-21 15:11 | disposition home or self-care (01) | DRG 176 ==
LOC: ED 22:16 → 1E 04-20 05:03 → SUATTDRO 04-20 05:03 → 1E 04-20 05:25 → 2S 04-21 07:11